=== PATIENT | female | born 1990 | race Caucasian/White ===

== ENCOUNTER → 2016-09-25 | Outpatient (CLI) | payer OTHER ==
--- NOTE | 2016-09-25 15:48 | US ---
EXAMINATION TYPE: US thyroid st tissue head/neck DATE OF EXAM: 09/25/2016 3:37 PM COMPARISON: NONE CLINICAL HISTORY: E04.9 Goiter, thyroid enlargement. GLAND SIZE: Right Lobe: 3.9 x 0.7 x 1.6 cm cm Overall Parenchyma: homogenous Left Lobe: 3.5 x 0.8 x 1.6 cm Overall Parenchyma: homogeneous Isthmus Thickness: 0.2 cm NODULES RIGHT: # of nodules measured on right: 1 1. 0.4 X 0.3 x 0.3 cm hypoechoic cystic nodule at the lower pole with well-defined margins; . This nodule is wider than tall and shows no intranodular vascularity. Prior size: no prior LEFT: # of nodules measured on left: 0 ISTHMUS: # of nodules measured in the isthmus: 0 Bilateral neck scanned, no evidence of lymphadenopathy. IMPRESSION: Subcentimeter cystic nodule right thyroid lobe.
== END | disposition home or self-care (01) ==
LOC: RADUSWWP 15:24
PROVIDERS: ATTEND Family Medicine
DX: E04.1 Nontoxic single thyroid nodule (principal)
CPT/HCPCS: 76536

== ENCOUNTER 2018-04-17 19:29 | Emergency (ER) | payer OTHER ==
[2018-04-17 19:43] VITALS: RESP 16
[2018-04-17] MEDS ORDERED: SODIUM CHLORIDE 0.9% 500 ML 500 ML IV STA (20:02)
[2018-04-17] MEDS ORDERED: ONDANSETRON 4 MG/2 ML VIAL IVP STA ×2 (20:02→21:32)
--- NOTE | 2018-04-17 20:15 | ED ---
Chest Pain HPI - General Chief Complaint: Chest Pain Stated Complaint: CP Time Seen by Provider: 04/17/18 19:45 Source: EMS Mode of arrival: EMS Limitations: no limitations - History of Present Illness Initial Comments: 27-year-old female patient presents to the emergency department today for evaluation of intermittent chest pain. Patient states the first episode was on Thursday while she was running on the treadmill. States that she was running for approximately 8 minutes when she started to have substernal chest pain and pressure. States that she was short of breath with this and did have racing heart. States that she did become nauseated. Patient states that she has had 2 further episodes of similar symptoms but without exertion with the last being today. Patient denies any abdominal pain, vomiting, constipation, or diarrhea. Denies any history of similar symptoms. Patient states that she does take oral contraceptives. She denies any recent travel, calf pain, or redness. She denies any fevers or chills this. States that this week she did develop nasal congestion and drainage and does have occasional cough but states that she was not ill with these symptoms with the first episode of chest pain. Patient denies any recent rash, back pain, numbness, tingling, dizziness, weakness, hematuria, dysuria, urinary urgency, urinary frequency, headache, visual changes , or any other complaints. - Related Data Allergies Allergy/AdvReac Type Severity Reaction Status Date / Time No Known Allergies Allergy Verified 04/17/18 19:50 Review of Systems ROS Statement: Those systems with pertinent positive or pertinent negative responses have been documented in the HPI. ROS Other: All systems not noted in ROS Statement are negative. EKG Findings - EKG Comments: EKG Findings:: EKG obtained at 1948 shows sinus rhythm with marked sinus arrhythmia. Ventricular rate is 62, MI interval 1:30, QRS duration 98, QT 400, QTC 406. No evidence of ST elevation or depression. Past Medical History History of Any Multi-Drug Resistant Organisms: None Reported Past Surgical History: Tubal Ligation Additional Past Surgical History / Comment(s): wisdom teeth removal Past Psychological History: Depression Smoking Status: Former smoker Past Alcohol Use History: None Reported Past Drug Use History: Marijuana General Exam Limitations: no limitations General appearance: alert, in no apparent distress, other (This is a well- developed, well-nourished adult female patient in no acute distress. Vital signs upon presentation are temperature 97.7F, pulse 79, respirations 16, blood pressure 149/99, pulse ox 98% on room air.) Eye exam: Present: normal appearance, PERRL, EOMI. Absent: scleral icterus, conjunctival injection, periorbital swelling ENT exam: Present: normal exam, normal oropharynx, mucous membranes moist Respiratory exam: Present: normal lung sounds bilaterally. Absent: respiratory distress, wheezes, rales, rhonchi, stridor Cardiovascular Exam: Present: regular rate, normal rhythm, normal heart sounds. Absent: systolic murmur, diastolic murmur, rubs, gallop, clicks GI/Abdominal exam: Present: soft, normal bowel sounds. Absent: distended, tenderness, guarding, rebound, rigid Neurological exam: Present: alert, oriented X3, CN II-XII intact Psychiatric exam: Present: normal affect, normal mood Skin exam: Present: warm, dry, intact, normal color. Absent: rash Course Vital Signs 04/17/18 04/17/18 04/17/18 19:39 19:41 20:00 Temperature 97.7 F Pulse Rate 79 70 Respiratory 16 15 Rate Blood Pressure 149/99 142/96 O2 Sat by Pulse 98 97 98 Oximetry 04/17/18 04/17/18 04/17/18 20:30 20:58 21:00 Temperature Pulse Rate 72 86 69 Respiratory 15 16 16 Rate Blood Pressure 136/99 127/86 127/86 O2 Sat by Pulse 100 99 97 Oximetry 04/17/18 04/17/18 04/17/18 21:30 22:00 22:47 Temperature 98.1 F Pulse Rate 93 79 75 Respiratory 16 16 16 Rate Blood Pressure 123/98 123/98 127/97 O2 Sat by Pulse 98 97 99 Oximetry Chest Pain [facility]:Two-view x-ray of the chest is obtained. This no focal airspace opacity, pleural effusion, or pneumothorax. The cardiac silhouette size is within normal limits. The osseous structures are intact. There are overlying cardiac leads. Impression by Dr. Moreland shows no acute cardiopulmonary process. MDM: 27-year-old female patient presented to the emergency department today with complaints of intermittent episodes of chest pain, pressure, and shortness of breath. Physical examination is unremarkable. Lungs are clear to auscultation with good air movement. EKG shows normal sinus rhythm with a sinus arrhythmia. Labs reviewed and are unremarkable. Chest x-ray shows no acute cardiopulmonary process. Did discuss findings and results with the patient. She is instructed follow-up with her primary care physician for recheck in 1-2 days. She is instructed to follow up with cardiology for further evaluation. She is instructed to avoid physical exertion until cleared by her physician. Return parameters were discussed in detail. She verbalizes understanding and agrees with this plan. Disposition Clinical Impression: Chest pain Disposition: HOME SELF-CARE Condition: Good Instructions: Chest Pain (ED), Low Fat Diet (ED) Additional Instructions: Follow-up with cardiology and her primary care physician for recheck as soon as possible. Return immediately for any new, worsening, or concerning symptoms. Is patient prescribed a controlled substance at d/c from ED?: No Referrals: Don Robles DO [Primary Care Provider] - 1-2 days Daniel Mcdermott MD [STAFF PHYSICIAN] - 1-2 days Time of Disposition: 22:40
[2018-04-17 20:45] LABS: Basophils % (A) 0 %; Eosinophils # (A) 0.3 k/uL (0-0.7); Eosinophils % (A) 2 %; HCT 40.1 % (34.0-46.0); HGB 13.5 gm/dL (11.4-16.0); Lymphocytes # (A) 2.8 k/uL (1.0-4.8); Lymphocytes % (A) 22 %; MCHC 33.6 g/dL (31.0-37.0); MCV 86.5 fL (80.0-100.0); Mean Platelet Volume 6.7; Monocytes # (A) 0.7 k/uL (0-1.0); Monocytes % (A) 5 %; Neutrophils # (A) 9.1 k/uL (1.3-7.7); Neutrophils % (A) 70 %; Platelet Count 362 k/uL (150-450); RBC 4.64 m/uL (3.80-5.40); RDW 12.8 % (11.5-15.5)
[2018-04-17 20:59] LABS: ALT 28 U/L (9-52); AST 30 U/L (14-36); Albumin 4.4 g/dL (3.5-5.0); Alkaline Phosphatase 145 U/L (38-126); Anion Gap 12 mmol/L; Blood Urea Nitrogen 15 mg/dL (7-17); Calcium 11.1 mg/dL (8.4-10.2); Carbon Dioxide 27 mmol/L (22-30); Chloride 100 mmol/L (98-107); Glucose 89 mg/dL (74-99); Magnesium 1.6 mg/dL (1.6-2.3); Potassium 4.2 mmol/L (3.5-5.1); Sodium 139 mmol/L (137-145); Total Bilirubin 0.4 mg/dL (0.2-1.3); Total Protein 8.1 g/dL (6.3-8.2)
--- NOTE | 2018-04-17 21:03 | XR ---
EXAMINATION TYPE: XR chest 2V DATE OF EXAM: 04/17/2018 COMPARISON: NONE HISTORY: Chest pain TECHNIQUE: Frontal and lateral views of the chest are obtained. FINDINGS: There is no focal air space opacity, pleural effusion, or pneumothorax seen. The cardiac silhouette size is within normal limits. The osseous structures are intact. There are overlying car diac leads. IMPRESSION: No acute cardiopulmonary process.
[2018-04-17 21:07] LABS: D-Dimer 0.28 mg/L FEU (<0.60); Partial Thromboplastin Time 27.6 sec (22.0-30.0); Prothrombin Time 9.6 sec (9.0-12.0)
[2018-04-17 21:24] LABS: Creatine Kinase 113 U/L (30-135)
[2018-04-17 21:36] LABS: Creatine Kinase MB 0.3 ng/mL (0.0-2.4); Troponin I <0.012 ng/mL (0.000-0.034)
[2018-04-17 22:12] LABS: Amorphous Sediment,Urine Occasional /hpf; Appearance,Urine Clear (Clear); Bilirubin,Urine Negative (Negative); Blood,Urine Small (Negative); Color,Urine Yellow; Glucose,Urine (UA) Negative (Negative); Hyaline Casts,Urine 1 /lpf (0-2); Ketones,Urine 1+ (Negative); Leukocyte Esterase,Urine Negative (Negative); Mucus,Urine Occasional /hpf; Nitrite,Urine Negative (Negative); PH, Urine 5.5 (5.0-8.0); Protein,Urine Negative (Negative); RBC,Urine 3 /hpf (0-5); Specific Gravity,Urine 1.021 (1.001-1.035); Squamous Epithelial Cell,Urine 10 /hpf (0-4); Urobilinogen,Urine <2.0 mg/dL (<2.0); WBC,Urine 5 /hpf (0-5)
[2018-04-17 22:48] VITALS: BP 127/97; PULSE 75; TEMP 98.1
== END 2018-04-17 22:48 | disposition home or self-care (01) ==
LOC: EC 19:29
DX: R07.2 Precordial pain (principal); R11.0 Nausea; R06.02 Shortness of breath; Z87.891 Personal history of nicotine dependence
CPT/HCPCS: 36415; 93005; 85379; 80053; 82550; 82553; 83735; 84484; 85025; 85610; 85730; 81001; 81025; 71046; 99285; 96374; 96376; J2405

== ENCOUNTER → 2018-04-22 | Outpatient (CLI) | payer OTHER ==
--- NOTE | 2018-04-22 13:42 | US ---
EXAMINATION TYPE: US abdomen complete DATE OF EXAM: 04/22/2018 COMPARISON: NONE CLINICAL HISTORY: K81.0 Acute cholecystitis. Right upper quadrant pain. EXAM MEASUREMENTS: Liver Length: 15.6 cm Gallbladder Wall: 0.3 cm CBD: 0.4 cm Spleen: 11.3 cm Right Kidney: 10.8 x 4.4 x 5.3 cm Left Kidney: 11.0 x 5.8 x 5.6 cm Pancreas: Obscured by bowel gas Liver: wnl Gallbladder: No stones seen Evidence for sonographic Randall's sign: No CBD: wnl Spleen: wnl Right Kidney: echogenic pyramids seen in cortex Left Kidney: echogenic pyramids seen in cortex Upper IVC: Obscured by overlying bowel gas Abd Aorta: wnl The visualized liver is homogenous. The intrahepatic portion of the IVC and visualized abdominal aor ta are within normal limits. There is no evidence of cholelithiasis. Common bile duct is unremarkab le. The pancreas is suboptimally seen on images saved secondary to shadowing from overlying bowel ga s. The spleen is unremarkable. Kidneys are symmetric and free of hydronephrosis. No renal lesions are seen. IMPRESSION: No suspicious acute finding is seen to account for patient's symptoms.
== END | disposition home or self-care (01) ==
LOC: RADUSWWP 10:05
PROVIDERS: ATTEND Family Medicine
DX: K81.0 Acute cholecystitis (principal)
CPT/HCPCS: 76700

== ENCOUNTER 2019-07-29 08:12 | Day surgery (SDC) | payer OTHER ==
[2019-07-27 14:59] VITALS: BMI 30.1
[~2019-07-29 08:12] MED LIST: LACTATED RINGERS 1,000 ML IV SCH; LIDOCAINE 1% 20 ML VIAL (10MG/ML) FOR IV START INTRADERMA PRN
[2019-07-29 08:35] VITALS: TEMP 98.3
[2019-07-29] MEDS ORDERED: PROPOFOL 10 MG/ML 20 ML VIAL IV ONE (09:21)
[2019-07-29] MEDS ORDERED: LIDOCAINE 1% INJ 10MG/ML (20 ML MDV) ONE (09:21)
--- NOTE | 2019-07-29 09:23 | P.GSHP ---
History of Present Illness H&P Date: 07/29/19 Chief Complaint: GERD This a 19-year-old female who presents today for EGD. She's had issues with GERD. Past Medical History Past Medical History: GERD/Reflux Additional Past Medical History / Comment(s): vomiting mucus brownish color during the night History of Any Multi-Drug Resistant Organisms: None Reported Past Surgical History: Tubal Ligation Additional Past Surgical History / Comment(s): wisdom teeth removal Past Anesthesia/Blood Transfusion Reactions: No Reported Reaction Smoking Status: Former smoker - Past Family History Mother Family Medical History: No Reported History Medications and Allergies Home Medications Medication Instructions Recorded Confirmed Type Norethindrone-E.estradiol-Iron 1 tab PO HS 07/27/19 07/29/19 History [Junel Fe 1.5 mg-30 Mcg Tablet] Omeprazole 20 mg PO HS 07/27/19 07/29/19 History Allergies Allergy/AdvReac Type Severity Reaction Status Date / Time No Known Allergies Allergy Verified 07/29/19 08:33 Surgical - Exam Vital Signs Temp Pulse Resp BP Pulse Ox 98.3 F 92 16 139/93 98 07/29/19 08:28 07/29/19 08:28 07/29/19 08:28 07/29/19 08:28 07/29/19 08:28 - General well developed, well nourished, no distress - Eyes PERRL - ENT normal pinna - Neck no masses - Respiratory normal expansion - Cardiovascular Rhythm: regular - Abdomen Abdomen: soft, non tender Assessment and Plan Assessment: GERD. We'll perform EGD.
--- NOTE | 2019-07-29 09:30 | P.OP ---
Date of Procedure: 07/29/19 Preoperative Diagnosis: GERD Postoperative Diagnosis: Antral gastritis Hiatal hernia Esophagitis Procedure(s) Performed: EGD Anesthesia: MAC Surgeon: Morales Cueto Pathology: other (Antral, esophagus) Condition: stable Disposition: PACU Description of Procedure: Patient's placed on the endoscopy table in the lateral position. She received IV sedation. The gastro-placed oropharynx passed in the esophagus into the stomach. Scope was then placed through the pylorus. The first and second portion of the duodenum appeared normal. Scope was then brought back the antrum and this appeared mildly inflamed. A biopsies performed. Was then retroflexed and the remainder of the stomach appeared normal. The patient had a moderate size hiatal hernia. The GE junction was at 39 cm. The distal esophagus appeared inflamed. A biopsies performed. The proximal esophagus appeared normal. Was then withdrawn from the patient.
[2019-07-29 09:33] VITALS: RESP 17
[2019-07-29 09:49] VITALS: BP 133/79; PULSE 70
== END 2019-07-29 10:06 | disposition home or self-care (01) ==
LOC: ORWHC2ENDO 08:12
PROVIDERS: ATTEND Surgery
DX: K29.50 Unspecified chronic gastritis without bleeding (principal); K21.0 Gastro-esophageal reflux disease with esophagitis; K44.9 Diaphragmatic hernia without obstruction or gangrene; F32.9 Major depressive disorder, single episode, unspecified; E66.9 Obesity, unspecified; Z87.891 Personal history of nicotine dependence; Z79.899 Other long term (current) drug therapy; Z68.30 Body mass index [BMI] 30.0-30.9, adult; Z98.51 Tubal ligation status; Z98.818 Other dental procedure status
CPT/HCPCS: 81025; 88305; 43239; J2001; J2704

== ENCOUNTER 2019-08-26 07:40 | Inpatient (IN) | payer OTHER ==
[~2019-08-26 07:40] MED LIST changes: +DEXAMETHASONE SOD PHOSPHATE 10 MG/ML 1 ML VIAL IV ONE; +HEPARIN SODIUM,PORCINE 5,000 UNIT/ML 1 ML VIAL SQ ONE; +HYDROmorphone 0.5 MG/0.5 ML SYRINGE IVP PRN; -LACTATED RINGERS 1,000 ML IV SCH; +LIDOCAINE 1% (10MG/ML) FOR IV START INTRADERMA PRN; -LIDOCAINE 1% 20 ML VIAL (10MG/ML) FOR IV START INTRADERMA PRN; +ONDANSETRON 4 MG/2 ML VIAL IVP ONE; +SCOPOLAMINE 1.5MG/72HR PATCH TRANSDERM ONE
[2019-08-26] MEDS: LACTATED RINGERS 1,000 ML IV SCH ×2 (09:38→23:50)
--- NOTE | 2019-08-26 10:32 | P.GSHP ---
History of Present Illness H&P Date: 08/26/19 Chief Complaint: GERD Is a 28-year-old female referred from Dr. Robles. The patient has had long- standing problems with reflux esophagitis. The patient underwent recent EGD is found have evidence of esophagitis. Patient has been well informed on the proce dure of laparoscopic Lay fundoplication. The patient is aware the risk of the conversion to the open procedure, risk of injury to the stomach, liver and spleen. The patient is also a risk of recurrent GERD and dysphagia symptoms. The patient understands there is a postoperative diet of full liquids for 2 weeks after surgery. Past Medical History Past Medical History: GERD/Reflux Additional Past Medical History / Comment(s): Vomiting mucus brownish color during the night History of Any Multi-Drug Resistant Organisms: None Reported Past Surgical History: Tubal Ligation Additional Past Surgical History / Comment(s): wisdom teeth removal. BILATERAL MYRINGOTOMY TUBES. Past Anesthesia/Blood Transfusion Reactions: No Reported Reaction Past Psychological History: Depression Additional Psychological History / Comment(s): TAKES NO MEDS Smoking Status: Former smoker Past Alcohol Use History: Occasional Additional Past Alcohol Use History / Comment(s): quit smoking Jul 2017,smoked approx 6 yrs on and off Past Drug Use History: Marijuana Additional Drug Use History / Comment(s): uses marijuana socially-used last 07-24-19 - Past Family History Mother Family Medical History: No Reported History Medications and Allergies Home Medications Medication Instructions Recorded Confirmed Type Norethindrone-E.estradiol-Iron 1 tab PO HS 07/27/19 08/24/19 History [Junel Fe 1.5 mg-30 Mcg Tablet] Omeprazole 20 mg PO HS 07/27/19 08/24/19 History Allergies Allergy/AdvReac Type Severity Reaction Status Date / Time No Known Allergies Allergy Verified 08/26/19 09:10 Surgical - Exam Vital Signs Temp Pulse Resp BP Pulse Ox 98.2 F 89 16 140/90 99 08/26/19 09:12 08/26/19 09:12 08/26/19 09:12 08/26/19 09:12 08/26/19 09:12 - General well developed, well nourished, no distress - Eyes PERRL - ENT normal pinna - Neck no masses - Respiratory normal expansion - Cardiovascular Rhythm: regular - Abdomen Abdomen: soft, non tender Assessment and Plan Assessment: GERD. We'll perform laparoscopic Lay fundoplication.
[2019-08-26] MEDS ORDERED: MIDAZOLAM 2 MG/2 ML VIAL ONE (10:52)
[2019-08-26] MEDS ORDERED: NEOSTIGMINE 1 MG/ML 10 ML VIAL ONE (10:52)
[2019-08-26] MEDS ORDERED: KETOROLAC 30 MG/ML 1 ML VIAL ONE (10:52)
[2019-08-26] MEDS ORDERED: ROCURONIUM BROMIDE 10 MG/ML 5 ML VIAL IV ONE (10:52)
[2019-08-26] MEDS ORDERED: fentaNYL (PF) 50 MCG/ML 2 ML AMP ONE (10:52)
[2019-08-26] MEDS ORDERED: SUCCINYLCHOLINE CHLORIDE 100 MG/5 ML SYR IV ONE (10:52)
[2019-08-26] MEDS ORDERED: GLYCOPYRROLATE 0.2 MG/ML 2 ML VIAL ONE (10:52)
[2019-08-26] MEDS ORDERED: PROPOFOL 10 MG/ML 20 ML VIAL IV ONE (10:52)
[2019-08-26] MEDS ORDERED: LIDOCAINE 1% INJ 10MG/ML (20 ML MDV) ONE (10:52)
[2019-08-26] MEDS ORDERED: BUPIVACAINE (PF) 0.25% 30 ML VIAL SQ ONE ×2 (11:21→11:24)
[2019-08-26] MEDS ORDERED: LACTATED RINGERS 1,000 ML IV ONE (11:24)
--- NOTE | 2019-08-26 12:04 | P.OP ---
Date of Procedure: 08/26/19 Preoperative Diagnosis: GERD Postoperative Diagnosis: GERD Procedure(s) Performed: Laparoscopic Lay fundal plication Anesthesia: BRIANA Surgeon: Morales Cueto Estimated Blood Loss (ml): 5 Pathology: none sent Condition: stable Disposition: PACU Description of Procedure: HThe patient was placed on the operating table in the supine position. The patient received general anesthesia. And was placed in dorsal lithotomy position. The patient was prepped and draped in the usual sterile fashion. The skin incision sites were anesthetized with 1% local Xylocaine. The skin was incised in the left periumbilical area and then using a blade less 5 mm trocar under direct visualization panel cavity was entered. After adequate insufflation the laparoscope was then placed into the peritoneal cavity. Next a 5 mm trochars placed in the right epigastric position. Another 5 millimeter trocar the right lateral position. Another 5 millimeter trocar in the left lateral position a 5 mm trocar is placed in the left epigastric position. And then the initial 5 mm trocar was exchanged for a 10 mm trocar. The left lateral lobe liver was retracted. The hernia was seen. The crural defect was then dissected using the Harmonic scissors device. A 360 crural dissection was performed the esophagus stomach was reduced back into the peritoneal Cavity. The crural defect was then closed using 2-0 Ethibond suture. Next the fundus of the stomach was mobilized using the Carlyle scissors device. and then a 58- Samoan bougie dilator was placed oropharynx passed into the esophagus and stomach the fundal plication wrap was then performed by grasping the fundus post eriorly and bringing it around the esophagus and stomach fundoplication was then performed using 2-0 Ethibond suture. Care was taken that the fundal location rested over top of the intra-abdominal esophagus. There was no injury seen to the stomach or esophagus. The dilator was then withdrawn. The abdomen was irrigated there is no bleeding seen. The trochars were then withdrawn and then skin incision sites were closed using 3-0 Monocryl suture Steri-Strips are applied. Patient thought procedure well and sent to recovery room in stable condition.
[2019-08-26] MEDS ORDERED: ONDANSETRON 4 MG/2 ML VIAL IVP PRN (12:06)
[2019-08-26 14:35] VITALS: BMI 31.6
--- NOTE | 2019-08-26 15:53 | FL ---
EXAMINATION TYPE: FL esophagus cervic/pharynx DATE OF EXAM: 08/26/2019 HISTORY: Post Lay 100 complication COMPARISON: NONE TECHNIQUE: A single contrast esophagram is performed utilizing air and barium. FINDINGS: The esophagus shows abnormal longitudinal filling defects distally which is proximal to the level of the fundoplication. There is delay of contrast material across the gastroesophageal junction. Pneumop eritoneum is identified. Patient unable to tolerate the exam, experienced nausea and vomiting. Retroc ardiac density likely left lower lobe atelectatic change. IMPRESSION: Abnormal luminal appearance of the distal esophagus proximal to the surgical bed as desc ribed with high-grade partial obstruction. Pneumoperitoneum is likely postoperative, consider endosco py. Report relayed to the referring clinician at the time of interpretation.
[2019-08-26] MEDS: DEXAMETHASONE SOD PHOSPHATE 4 MG/ML 1 ML VIAL IV SCH ×2 (17:28→23:49)
[2019-08-26] MEDS: HYDROmorphone 1 MG/ML 1 ML SYRINGE IVP PRN (17:28)
[2019-08-26] MEDS: D5-0.45% NACL WITH KCL 20MEQ/L 1,000 ML IV SCH ×2 (17:34→20:15)
[2019-08-26] MEDS: FAMOTIDINE 20 MG/2 ML VIAL IV SCH (20:15)
[2019-08-27] MEDS: HYDROmorphone 1 MG/ML 1 ML SYRINGE IVP PRN ×2 (00:07→10:20)
[2019-08-27] MEDS: D5-0.45% NACL WITH KCL 20MEQ/L 1,000 ML IV SCH ×2 (04:35→12:16)
[2019-08-27] MEDS: DEXAMETHASONE SOD PHOSPHATE 4 MG/ML 1 ML VIAL IV SCH ×2 (05:41→12:14)
[2019-08-27] MEDS ORDERED: ENOXAPARIN 40 MG/0.4 ML SYRINGE SQ SCH (09:00)
[2019-08-27] MEDS: FAMOTIDINE 20 MG/2 ML VIAL IV SCH (09:47)
[2019-08-27 12:04] VITALS: BP 135/86; RESP 16; TEMP 98
--- NOTE | 2019-08-27 12:58 | FL ---
EXAMINATION TYPE: FL UGI w esophagus DATE OF EXAM: 08/27/2019 CLINICAL HISTORY: Status post Lay fundoplication TECHNIQUE: Limited esophagram is performed utilizing 25 mL of oral Isovue-370. A total of 19 seconds of fluoroscopic time was utilized during procedure. 10 fluoroscopic images were saved during the exa mination. FINDINGS: The patient swallowed contrast without difficulty or delay. Esophageal peristalsis and mo tility are within normal limits. There is good flow of contrast along the diaphragmatic hiatus into t he stomach, there is no evidence of contrast extravasation to suggest leak. No persistent hiatal cinthya ia is seen. Patient remains asymptomatic. IMPRESSION: No evidence of leak or significant obstruction status post Gustavo fundoplication surgery earlier today.
[2019-08-27 14:03] VITALS: PULSE 76
--- NOTE | 2019-08-27 14:36 | PN ---
PROGRESS NOTE CHIEF COMPLAINT: Reflux. SUBJECTIVE: Patient doing well today. Minimal discomfort overnight. Yesterday's upper GI showed narrowing at the fundoplication site. Today she underwent repeat upper GI showing no evidence of obstruction. The patient had no vomiting. OBJECTIVE: ABDOMEN: Soft, nondistended. Minimal tenderness. ASSESSMENT: Gonxqo[age]vzos[age]cudi-old female with reflux post Lay fundoplication. PLAN: Begin Lay clear liquid diet at this time. If tolerates, consider discharge later today. MMODL / IJN: [id number] /
--- NOTE | 2019-08-27 16:05 | P.CONS ---
History of Present Illness - Reason for Consult gastroesophageal reflux disease - History of Present Illness patient is a pleasant 28-year-old female admitted for elective assessment of infection successfully underwent surgery patient failed swallow evaluation yesterday patienthad an upper GIbarium swallows did not show any leak and patient is clinically doing well able to tolerate clear liquid diet well at this time. Patient denied any fever chills patient is inevitable catheter patient denied any dysuria nausea vomiting. Review of Systems REVIEW OF SYSTEMS: CONSTITUTIONAL: No fever, no malaise, no fatigue. HEENT: No recent visual problems or hearing problems. Denied any sore throat. CARDIOVASCULAR: No chest pain, orthopnea, PND, no palpitations, no syncope. PULMONARY: No shortness of breath, no cough, no hemoptysis. GASTROINTESTINAL: No diarrhea, no nausea, no vomiting, no abdominal pain. NEUROLOGICAL: No headaches, no weakness, no numbness. HEMATOLOGICAL: Denies any bleeding or petechiae. GENITOURINARY: Denies any burning micturition, frequency, or urgency. MUSCULOSKELETAL/RHEUMATOLOGICAL: Denies any joint pain, swelling, or any muscle pain. ENDOCRINE: Denies any polyuria or polydipsia. The rest of the 14-point review of systems is negative. Past Medical History Past Medical History: GERD/Reflux Additional Past Medical History / Comment(s): Vomiting mucus brownish color du ring the night History of Any Multi-Drug Resistant Organisms: None Reported Past Surgical History: Tubal Ligation Additional Past Surgical History / Comment(s): wisdom teeth removal. BILATERAL MYRINGOTOMY TUBES. Past Anesthesia/Blood Transfusion Reactions: No Reported Reaction Past Psychological History: Depression Additional Psychological History / Comment(s): TAKES NO MEDS Smoking Status: Former smoker Past Alcohol Use History: Occasional Additional Past Alcohol Use History / Comment(s): quit smoking Jul 2017,smoked approx 6 yrs on and off Past Drug Use History: Marijuana Additional Drug Use History / Comment(s): uses marijuana socially-used last 2-- - Past Family History Mother Family Medical History: No Reported History Medications and Allergies Home Medications Medication Instructions Recorded Confirmed Type Norethindrone-E.estradiol-Iron 1 tab PO HS 07/27/19 08/24/19 History [Junel Fe 1.5 mg-30 Mcg Tablet] Omeprazole 20 mg PO HS 07/27/19 08/24/19 History Docusate [Colace] 100 mg PO BID #20 capsule 08/26/19 Rx HYDROcodone/APAP 5-325MG [[place] 1 tab PO Q6HR PRN #10 tab 08/26/19 Rx 5-325] Hydrocodone/Acetaminophen [[place] 1 tab PO Q6HR PRN #10 tab 08/26/19 Rx 5-325] Allergies Allergy/AdvReac Type Severity Reaction Status Date / Time No Known Allergies Allergy Verified 08/26/19 09:10 Physical Exam Vitals: Vital Signs Temp Pulse Pulse Pulse Resp BP Pulse Ox 08/27/19 11:42 98.0 F 82 16 135/86 97 08/27/19 09:00 76 08/27/19 08:22 97.5 F L 56 L 18 137/87 94 L 08/27/19 00:46 98.8 F 83 18 126/72 98 08/26/19 18:49 99.0 F 87 20 143/80 94 L 08/26/19 17:28 90 20 148/90 94 L 08/26/19 16:28 80 20 129/76 95 Intake and Output 08/27/19 08/27/19 08/27/19 06:59 14:59 22:59 Intake Total 1350 160 120 Output Total 2000 Balance 1350 -1840 120 Intake: Intake, IV Titration 1250 Amount D5-0.45% NaCl with KCl 1250 20Meq/l 1,000 ml @ 125 mls/hr IV .Q8H [facility] Rx#: [id number] Oral 100 160 120 Output: Urine 2000 Other: Voiding Method Toilet # Voids 2 2 PHYSICAL EXAMINATION: GENERAL: The patient is alert and oriented x3, not in any acute distress. Well developed, well nourished. HEENT: Pupils are round and equally reacting to light. EOMI. No scleral icterus. No conjunctival pallor. Normocephalic, atraumatic. No pharyngeal erythema. No thyromegaly. CARDIOVASCULAR: S1 and S2 present. No murmurs, rubs, or gallops. PULMONARY: Chest is clear to auscultation, no wheezing or crackles. ABDOMEN: Soft, nontender, nondistended, normoactive bowel sounds. No palpable organomegaly. MUSCULOSKELETAL: No joint swelling or deformity. EXTREMITIES: No cyanosis, clubbing, or pedal edema. NEUROLOGICAL: Gross neurological examination did not reveal any focal deficits. SKIN: No rashes. Assessment and Plan Plan: -gastroesophageal reflux disease patient is status post recent fundoplication and patient on Pepcid which is appropriate patient is tolerating clear liquid diet well developed. patient is stable from medical perspective to be discharged -depression
== END 2019-08-27 15:35 | disposition home or self-care (01) | DRG 328 ==
LOC: 2ORMAIN 08:56 → 6PED 12:09
PROVIDERS: ADMIT Surgery; ATTEND Surgery
PROC: 0DV44ZZ Restriction of Esophagogastric Junction, Percutaneous Endoscopic Approach (ICD-10-PCS; principal; 2019-08-26 10:45)
DX: K21.9 Gastro-esophageal reflux disease without esophagitis (principal); F32.9 Major depressive disorder, single episode, unspecified; Z87.891 Personal history of nicotine dependence
CPT/HCPCS: 74210; 74240; 81025

== ENCOUNTER → 2019-12-29 | Outpatient (CLI) | payer OTHER ==
--- NOTE | 2019-12-29 12:11 | NM ---
EXAMINATION TYPE: NM hepatobiliary w CCK DATE OF EXAM: 12/29/2019 COMPARISON: NONE HISTORY: 29-year-old female K81.1, chronic cholecystitis, epigastric pain. TECHNIQUE: After the intravenous administration of 4.94 mCi Tc 99m Mebrofenin hepatobiliary scintigra phy is performed. Immediate images post injection. FINDINGS: There is satisfactory initial accumulation of tracer by the liver. The gallbladder is visualized at 8 minutes. The small bowel activity is noted at 18 minutes. At one hour CCK was administered, patient was injected with 1.5 mcg of Kinevac, and gallbladder ejection fraction is calculated at 12 %, signi ficantly decreased. IMPRESSION: 1. No scintigraphic evidence for acute cholecystitis. 2. Gallbladder ejection fraction is markedly diminished to 12%. Findings can be seen with chronic cho lecystitis or biliary dyskinesia.
== END | disposition home or self-care (01) ==
LOC: RADNMMAIN 06:53
PROVIDERS: ATTEND Surgery
DX: R93.2 Abnormal findings on diagnostic imaging of liver and biliary tract (principal)
CPT/HCPCS: 78227; A9537; J2805

== ENCOUNTER 2020-01-09 06:34 | Day surgery (SDC) | payer OTHER ==
[2020-01-05 13:36] VITALS: BMI 29.7
[~2020-01-09 06:34] MED LIST changes: +ACETAMINOPHEN TAB 500 MG TAB PO ONE; -HYDROmorphone 0.5 MG/0.5 ML SYRINGE IVP PRN
[2020-01-09] MEDS ORDERED: ACETAMINOPHEN TAB 500 MG TAB ONE (07:10)
[2020-01-09] MEDS ORDERED: HEPARIN SODIUM,PORCINE 5,000 UNIT/ML 1 ML VIAL ONE (07:11)
[2020-01-09] MEDS ORDERED: ONDANSETRON 4 MG/2 ML VIAL ONE (07:11)
[2020-01-09] MEDS: LACTATED RINGERS 1,000 ML IV SCH ×2 (07:25→07:45)
[2020-01-09] MEDS ORDERED: GLYCOPYRROLATE 0.2 MG/ML 2 ML VIAL ONE (07:40)
[2020-01-09] MEDS ORDERED: MIDAZOLAM 2 MG/2 ML VIAL ONE (07:40)
[2020-01-09] MEDS ORDERED: SUCCINYLCHOLINE CHLORIDE 100 MG/5 ML SYR IV ONE (07:40)
[2020-01-09] MEDS ORDERED: LIDOCAINE 1% INJ 10MG/ML (20 ML MDV) ONE (07:40)
[2020-01-09] MEDS ORDERED: ROCURONIUM BROMIDE 10 MG/ML 5 ML VIAL IV ONE (07:40)
[2020-01-09] MEDS ORDERED: NEOSTIGMINE 1 MG/ML 10 ML VIAL ONE (07:40)
[2020-01-09] MEDS ORDERED: PROPOFOL 10 MG/ML 20 ML VIAL IV ONE (07:40)
[2020-01-09] MEDS ORDERED: fentaNYL (PF) 50 MCG/ML 2 ML AMP ONE (07:40)
[2020-01-09] MEDS ORDERED: KETOROLAC 30 MG/ML 1 ML VIAL ONE (07:40)
[2020-01-09] MEDS ORDERED: BUPIVACAIN-EPI 0.25%-1:200,000 30 ML VIAL SQ ONE (08:05)
--- NOTE | 2020-01-09 08:28 | P.OP ---
Date of Procedure: 01/09/20 Preoperative Diagnosis: Cholecystitis Postoperative Diagnosis: Cholecystitis Procedure(s) Performed: Laparoscopic cholecystectomy Anesthesia: BRIANA Surgeon: Morales Cueto Estimated Blood Loss (ml): 5 Pathology: other (Gallbladder) Condition: stable Disposition: PACU Description of Procedure: The patient was placed on the operating table. The patient received a general endotracheal tube anesthesia. The patients abdomen was prepped and draped in the usual sterile fashion. Through an infraumbilical stab incision, the fascia of the anterior abdominal wall was grasped with a pair of Kochers and then the Veress needle was placed in the peritoneal cavity. Position of the Veress needle was confirmed with positive drop test. The abdomen was then insufflated. After adequate insufflation, the 10 mm trocar was placed in the peritoneal cavity. Following this the laparoscope was placed in the peritoneal cavity. The patient was placed in the head-up, right side up position and then a 5 mm trocar was placed in the right lateral and right subcostal position under direct visualization. A 8 mm trocar was placed in the epigastric position. The gallbladder was grasped in the fundus and infundibulum. Traction on the gallbladder was placed in the lateral and the cephalad positions. The triangle of Calot was visualized.. The cystic duct was bluntly dissected until the union of the cystic duct and common bile duct was seen. A critical view of safety was achieved. The cystic duct was then divided and sealed with the Harmonic scissors. A PDS Endoloop was then placed throughout the cystic duct stump. The cystic artery divided and sealed with the Harmonic scissors. The gallbladder was then removed from the liver bed using Harmonic scissors. The gallbladder was then extracted through the epigastric port site. Operative field was checked for any bleeding spots and Harmonic scissors was used to coagulate the liver bed. The abdomen was irrigated. The trocars were removed. The skin was closed using interrupted 3-0 Vicryl suture. Dermabond dressing were applied. The patient tolerated the procedure well.
--- NOTE | 2020-01-09 08:32 | P.GSHP ---
History of Present Illness H&P Date: 01/09/20 Chief Complaint: Chronic cholecystitis This a 29-year-old female presents today for laparoscopic close it. Patient quadrant pain. A recent HIDA scan shows a 12% ejection fraction consistent with chronic cholecystitis. Past Medical History Past Medical History: GERD/Reflux Additional Past Medical History / Comment(s): current abdominal pain, History of Any Multi-Drug Resistant Organisms: None Reported Past Surgical History: Tubal Ligation Additional Past Surgical History / Comment(s): alma fundlaplication, wisdom teeth removal. BILATERAL MYRINGOTOMY TUBES. Past Anesthesia/Blood Transfusion Reactions: No Reported Reaction Smoking Status: Former smoker - Past Family History Mother Family Medical History: No Reported History Medications and Allergies Home Medications Medication Instructions Recorded Confirmed Type Norethindrone-E.estradiol-Iron 1 tab PO HS 07/27/19 01/09/20 History [Junel Fe 1.5 mg-30 Mcg Tablet] Allergies Allergy/AdvReac Type Severity Reaction Status Date / Time No Known Allergies Allergy Verified 01/09/20 06:51 Surgical - Exam Vital Signs Temp Pulse Resp BP Pulse Ox 97.9 F 89 18 128/84 97 01/09/20 07:03 01/09/20 07:03 01/09/20 07:03 01/09/20 07:03 01/09/20 07:03 - General well developed, well nourished, no distress - Eyes PERRL - ENT normal pinna - Neck no masses - Respiratory normal expansion - Cardiovascular Rhythm: regular - Abdomen Abdomen: soft, non tender Assessment and Plan Assessment: Chronic cholecystitis. We'll perform laparoscopic cholecystectomy
[2020-01-09 08:38] VITALS: TEMP 98
[2020-01-09] MEDS: HYDROmorphone 0.5 MG/0.5 ML SYRINGE IVP PRN ×2 (08:46→08:51)
[2020-01-09] MEDS ORDERED: LACTATED RINGERS 1,000 ML IV ONE (09:09)
[2020-01-09 09:45] VITALS: RESP 20
[2020-01-09] MEDS ORDERED: HYDROcodone/APAP 5-325MG 1 EACH TAB ONE (10:00)
[2020-01-09] MEDS ORDERED: HYDROcodone/APAP 5-325MG 1 EACH TAB PO ONE (10:01)
[2020-01-09 10:42] VITALS: BP 132/80; PULSE 70
== END 2020-01-09 10:35 | disposition home or self-care (01) ==
LOC: OR 06:34
PROVIDERS: ATTEND Surgery
DX: K81.1 Chronic cholecystitis (principal); K21.9 Gastro-esophageal reflux disease without esophagitis; Z98.51 Tubal ligation status; Z87.891 Personal history of nicotine dependence; Z79.818 Long term (current) use of other agents affecting estrogen receptors and estrogen levels
CPT/HCPCS: 81025; 88304; 47562; J2250; J1644; J1100; J2710; J0690; J2405; J2001; J3010; J1885; J0330; J2704; J1170

== ENCOUNTER → 2020-03-07 | Outpatient (CLI) | payer OTHER ==
[2020-03-07 08:53] LABS: HCT 39.1 % (34.0-46.0); HGB 12.8 gm/dL (11.4-16.0); MCH 28.8 pg (25.0-35.0); MCHC 32.8 g/dL (31.0-37.0); MCV 87.9 fL (80.0-100.0); Mean Platelet Volume 6.7; Platelet Count 373 k/uL (150-450); RBC 4.45 m/uL (3.80-5.40); RDW 12.7 % (11.5-15.5); WBC 9.1 k/uL (3.8-10.6)
[2020-03-07 18:19] LABS: African American GFR (CKD) 114.7 (60.0-200.0); Albumin 4.4 g/dL (3.80-4.90); Albumin/Globulin Ratio 1.83 (1.60-3.17); BUN/Creat Ratio 17.5 Ratio (12.00-20.00); Calcium 9.4 mg/dL (8.7-10.3); Chol/HDL Ratio 4.02; Globulin 2.4 g/dL (1.6-3.3); LDL Cholesterol,Calculated 112.2 mg/dL (0.0-131.0); Non-African American GFR(CKD) 98.9 (60.0-200.0); Potassium 4.5 mmol/L (3.5-5.5); Total Bilirubin 0.3 mg/dL (0.3-1.2); Total Protein 6.8 g/dL (6.2-8.2); VLDL Calculation 38.8 mg/dL (5.00-40.00)
[2020-03-07 18:27] LABS: T4, Free (Free Thyroxine) 0.9 ng/dL (0.80-1.80)
== END | disposition home or self-care (01) ==
LOC: LABWHC1 08:07
PROVIDERS: ATTEND Family Medicine
DX: E04.1 Nontoxic single thyroid nodule (principal); I10 Essential (primary) hypertension; E78.5 Hyperlipidemia, unspecified
CPT/HCPCS: 36415; 80053; 80061; 84439; 84443; 85027

== ENCOUNTER 2021-01-01 10:16 | Day surgery (SDC) | payer BC, OTHER ==
[2020-12-28 13:49] VITALS: BMI 34.5
[~2021-01-01 10:16] MED LIST changes: -ACETAMINOPHEN TAB 500 MG TAB PO ONE; -DEXAMETHASONE SOD PHOSPHATE 10 MG/ML 1 ML VIAL IV ONE; -HEPARIN SODIUM,PORCINE 5,000 UNIT/ML 1 ML VIAL SQ ONE; +LACTATED RINGERS 1,000 ML IV SCH; -LIDOCAINE 1% (10MG/ML) FOR IV START INTRADERMA PRN; -ONDANSETRON 4 MG/2 ML VIAL IVP ONE; -SCOPOLAMINE 1.5MG/72HR PATCH TRANSDERM ONE
[2021-01-01 10:50] VITALS: RESP 16; TEMP 97.6
[2021-01-01] MEDS ORDERED: LIDOCAINE 1% (10MG/ML) FOR IV START INTRADERMA ONE (10:59)
[2021-01-01] MEDS ORDERED: LIDOCAINE 1% INJ 10MG/ML (20 ML MDV) ONE (11:11)
[2021-01-01] MEDS ORDERED: PROPOFOL 10 MG/ML 20 ML VIAL IV ONE (11:11)
--- NOTE | 2021-01-01 11:27 | P.HPIHPCON ---
History of Present Illness H&P Date: 01/01/21 30-year-old female presents today for upper endoscopy. She is noted to have had a Lay fundoplication performed in August 2019. She did have this performed secondary to reflux. She states that she has had increased regurgitation and reflux since that time. She complains of vomiting episodes that are phlegm-like and also containing bile. She does take omeprazole distally with some success. She has no additional complaints at this time. Consent for Procedure: I have explained the operation/procedure to the patient, including the risks, benefits, side effects, alternative therapies (including not receiving the proposed treatment or service), the likelihood of the patient achieving his/her goals, and potential recuperation problems for the procedure/sedation/analgesia, as well as any blood products, if indicated. I also explained to the patient the risks, benefits and side effects of the alternatives, as well as the risks related to not receiving the proposed procedure, care, treatment, or services. - Review of Systems All systems: negative Past Medical History Past Medical History: GERD/Reflux, Hypertension Additional Past Medical History / Comment(s): current abdominal pain History of Any Multi-Drug Resistant Organisms: None Reported Past Surgical History: Tubal Ligation Additional Past Surgical History / Comment(s): alma fundlaplication, wisdom teeth removal. BILATERAL MYRINGOTOMY TUBES, Past Anesthesia/Blood Transfusion Reactions: No Reported Reaction Smoking Status: Former smoker - Past Family History Mother Family Medical History: No Reported History Medications and Allergies Home Medications Medication Instructions Recorded Confirmed Type Labetalol HCl 100 mg PO BID 12/28/20 01/01/21 History Omeprazole 20 mg PO DAILY 12/28/20 01/01/21 History Allergies Allergy/AdvReac Type Severity Reaction Status Date / Time No Known Allergies Allergy Verified 01/01/21 10:50 Surgical - Exam Osteopathic Statement: *. No significant issues noted on an osteopathic structural exam other than those noted in the History and Physical/Consult. Vital Signs Temp Pulse Resp BP Pulse Ox 97.6 F 87 16 130/77 99 01/01/21 10:44 01/01/21 10:44 01/01/21 10:44 01/01/21 10:44 01/01/21 10:44 - General well nourished, no distress - Respiratory normal respiratory effort - Abdomen Abdomen: soft, non tender - Psychiatric oriented to time, oriented to person, oriented to place Assessment and Plan Plan: 30-year-old female with history of regurgitation and reflux. She also has a history of a Lay fundoplication performed in August 2019. Plan is for upper endoscopy for further evaluation. Further recommendations after procedure.
--- NOTE | 2021-01-01 11:31 | P.PCN ---
Date of Procedure: 01/01/21 Preoperative Diagnosis: Reflux History of Lay fundoplication Postoperative Diagnosis: Moderate sized hiatal hernia Gastritis and duodenitis Procedure(s) Performed: EGD with biopsy Anesthesia: MAC Surgeon: Jenn Guzman Pathology: other (Biopsies of duodenum, antrum, esophagus) Condition: stable Disposition: same day Indications for Procedure: 30-year-old female who underwent Lay from application of August 2019 presents now with complaints of increased regurgitation and reflux. She also complains of some nausea and vomiting episodes. She takes omeprazole with minimal success. Plan is for upper endoscopy. Risks, benefits and alternatives were provided to the patient. Operative Findings: Moderate size hiatal hernia Gastritis Duodenitis Description of Procedure: The patient was brought into the endoscopy suite and placed in left lateral decubitus position and adequate sedation was achieved using conscious sedation. A bite block was placed and the endoscope was placed in the oropharynx and advanced under endoscopic visualization. The endoscope was advanced through the esophagus into the stomach, through the gastric antrum and in through the pylorus. The third portion of duodenum was visualized. The endoscope was then slowly withdrawn. The first portion of duodenum was noted to have mild inflammatory changes. Biopsies were taken. The antrum was noted to have mild infiltrative changes. Biopsies were taken. The gastric body distended normally and the gastric folds appeared normal and flattened with insufflation. No evidence of gastric polyps. A retroflexed view of the fundus and GE junction revealed a moderate-sized hiatal hernia. The esophagus appeared endoscopically normal. Distal biopsy was taken. Excess air was removed and the scope was withdrawn and the procedure was completed. The patient was then sent to postanesthesia care unit in stable condition.
[2021-01-01 12:16] VITALS: BP 126/83; PULSE 92
== END 2021-01-01 12:21 | disposition home or self-care (01) ==
LOC: ORWHC2ENDO 10:16
PROVIDERS: ATTEND Surgery
DX: K21.00 Gastro-esophageal reflux disease with esophagitis, without bleeding (principal); K44.9 Diaphragmatic hernia without obstruction or gangrene; I10 Essential (primary) hypertension; Z87.891 Personal history of nicotine dependence; Z79.899 Other long term (current) drug therapy
CPT/HCPCS: 81025; 88305; 43239; J2001; J2704

== ENCOUNTER 2021-09-23 10:34 | Outpatient (CLI) | payer BC ==
[2021-09-23 11:51] LABS: Appearance,Urine Cloudy (Clear); Bacteria,Urine Occasional /hpf; Bilirubin,Urine Negative (Negative); Blood,Urine Negative (Negative); Color,Urine Yellow; Glucose,Urine (UA) Negative (Negative); Ketones,Urine Negative (Negative); Leukocyte Esterase,Urine Large (Negative); Mucus,Urine Occasional /hpf; Nitrite,Urine Negative (Negative); Protein,Urine Trace (Negative); Squamous Epithelial Cell,Urine 35 /hpf (0-4); Urobilinogen,Urine <2.0 mg/dL (<2.0); WBC,Urine 52 /hpf (0-5)
[2021-09-23 11:59] LABS: Basophils % (A) 0 %; Eosinophils # (A) 0.1 k/uL (0-0.7); Eosinophils % (A) 1 %; HCT 29.1 % (34.0-46.0); HGB 9.5 gm/dL (11.4-16.0); Hypochromasia Slight; Lymphocytes # (A) 1.6 k/uL (1.0-4.8); Lymphocytes % (A) 17 %; MCH 26.1 pg (25.0-35.0); MCHC 32.6 g/dL (31.0-37.0); MCV 80.2 fL (80.0-100.0); Mean Platelet Volume 8.1; Monocytes # (A) 0.4 k/uL (0-1.0); Monocytes % (A) 4 %; Neutrophils # (A) 7.6 k/uL (1.3-7.7); Neutrophils % (A) 76 %; Platelet Count 414 k/uL (150-450); RBC 3.63 m/uL (3.80-5.40); RDW 15.2 % (11.5-15.5)
[2021-09-23 12:10] LABS: ALT 13 U/L (4-34); AST 25 U/L (14-36); African American GFR (CKD) >90 (>60 ml/min/1.73 sqM); Blood Urea Nitrogen 11 mg/dL (7-17); LDH 298 U/L (313-618); Magnesium 1.6 mg/dL (1.6-2.3); Non-African American GFR(CKD) >90 (>60 ml/min/1.73 sqM); Uric Acid 5.7 mg/dL (3.7-7.4)
[2021-09-23 12:20] LABS: Creatinine,Urine Random 101.5 mg/dL; Protein/Creatinine Ratio,Urine 0.108
[2021-09-23] MEDS ORDERED: BETAMET ACET-BETAMETH SOD PHOS 6 MG/ML MDV IM SCH (12:30)
[2021-09-23 12:42] LABS: INR 0.9 (<1.2); Partial Thromboplastin Time 24.6 sec (22.0-30.0); Prothrombin Time 9.6 sec (9.0-12.0)
[2021-09-23 13:05] VITALS: BP 135/78; PULSE 112; RESP 16; TEMP 96.4
--- NOTE | 2021-09-24 18:31 | P.MSEPDOC ---
Presenting Problems - Arrival Data Date of Arrival on Unit: 09/23/21 Time of Arrival on Unit: 10:40 Mode of Transport: Ambulatory - Complaint OB-Reason for Admission/Chief Complaint: Celestone Injection Medical History - Information : 2 Para: 1 - Gestational Age Gestational Age by ALVAREZ (wks/days): 35 Weeks and 6 Days Review of Systems - Review of Systems Constitutional: No problems Breast: No problems ENT: No problems Cardiovascular: No problems Respiratory: No problems Gastrointestinal: No problems Genitourinary: No problems Musculoskeletal: No problems Neurological: No problems Skin: No problems Vital Signs - Temperature Temperature: 96.4 F Temperature Source: Temporal Artery Scan - Pulse Right Sitting Brachial Pulse Rate: 112 Pulse Assessment Method: Pulse Oximetry - Respirations Respiratory Rate: 16 Oxygen Delivery Method: Room Air O2 Sat by Pulse Oximetry: 100 - Blood Pressure Right Arm Sitting Blood Pressure: 135/78 Blood Pressure Mean: 97 Blood Pressure Source: Automatic Cuff Medical Screen Scoring - Assessment - Baby A Baseline FHR: 130 Heart Rate - NICHD Category: Category I (Normal) Physician Notification - Physician Notified Physician Notified Date: 09/23/21 Physician Notified Time: 12:30 Physician: Tucker Power New Order Received: Yes - Notification Comment Comment: discharge Maternal Triage Index - Maternal Triage Index Presenting for scheduled procedure w/no complaint: No - Stat/Priority 1 Stat Priority 1: No - Urgent/Priority 2 Urgent Priority 2: No - Prompt/Priority 3 Prompt Priority 3: Yes Criteria Met for Priority 3: PIH work up Disposition - Disposition OB Disposition: Discharge to home Discharge Date: 09/23/21 Discharge Time: 12:40 I agree with the RN Medical Screening Exam: Yes Case reviewed; plan agreed upon as documented in EMR&OBIX.: Yes Diagnosis: GESTATIONAL HTN W/O SIGNIFICANT PROTEINURIA, THIRD TRIMESTER
== END 2021-09-23 12:40 | disposition home or self-care (01) ==
LOC: FBPOP 10:34
PROVIDERS: ATTEND Obstetrics & Gynecology
DX: O13.3 Gestational [pregnancy-induced] hypertension without significant proteinuria, third trimester (principal); Z3A.35 35 weeks gestation of pregnancy
CPT/HCPCS: 59025; 99215; 82570; 84156; 82565; 83615; 83735; 84450; 84460; 84520; 84550; 85025; 85384; 85610; 85730; 81001; J0702

== ENCOUNTER 2021-09-24 13:24 | Outpatient (CLI) | payer BC ==
[2021-09-24] MEDS ORDERED: BETAMET ACET-BETAMETH SOD PHOS 6 MG/ML MDV IM SCH (13:30)
--- NOTE | 2021-09-24 18:30 | P.MSEPDOC ---
Presenting Problems - Arrival Data Date of Arrival on Unit: 09/24/21 Time of Arrival on Unit: 13:24 Mode of Transport: Ambulatory - Complaint OB-Reason for Admission/Chief Complaint: Celestone Injection Medical History - Information : 2 Para: 1 Term: 1 : 0 Abortions: Spontaneous or Elective: 0 Number of Living Children: 1 - Gestational Age Gestational Age by ALVAREZ (wks/days): 36 Weeks and 0 Days Review of Systems - Review of Systems Constitutional: No problems Breast: No problems ENT: No problems Cardiovascular: No problems Respiratory: No problems Gastrointestinal: No problems Genitourinary: No problems Musculoskeletal: No problems Neurological: No problems Skin: No problems Physician Notification - Physician Notified Physician Notified Date: 09/24/21 Physician Notified Time: 13:24 Physician: Tucker Power Order Received: No Maternal Triage Index - Maternal Triage Index Presenting for scheduled procedure w/no complaint: Yes - Scheduled/Requesting Priority 5 Scheduled/Requesting Priority 5: Yes Criteria Met for Priority 5: Patient here for scheduled celestone injection Disposition - Disposition OB Disposition: Discharge to home, Written follow up instructions reviewed Discharge Date: 09/24/21 Discharge Time: 13:39 I agree with the RN Medical Screening Exam: Yes Case reviewed; plan agreed upon as documented in EMR&OBIX.: Yes Diagnosis: GESTATIONAL HTN W/O SIGNIFICANT PROTEINURIA, THIRD TRIMESTER
== END 2021-09-24 13:39 | disposition home or self-care (01) ==
LOC: FBPOP 13:24
PROVIDERS: ATTEND Obstetrics & Gynecology
DX: O13.3 Gestational [pregnancy-induced] hypertension without significant proteinuria, third trimester (principal); Z3A.36 36 weeks gestation of pregnancy
CPT/HCPCS: 99214; 96372; J0702

== ENCOUNTER 2021-10-01 05:45 | Inpatient (IN) | payer BC ==
--- NOTE | 2021-09-30 09:08 | P.HPOB ---
History of Present Illness H&P Date: 09/30/21 Chief Complaint: Gestational hypertension This patient is a pleasant 31 yr female EDC 10/22/2021 estimated gestational age 37 0/7 weeks who presents to L&D for induction of labor secondary to gestational hypertension. Patients history is such that she was induced last p regnancy for gestational HTN. Has been on 81mg ASA and placed on Labetalol, however most recently blood pressure has increased to 170/92 and 148/97. Pre- eclampsia evaluation was negative. Per current recommendations, plan to proceed with delivery at this time. She has been watched with growth ultrasounds and testing. Review of Systems Genitourinary: Reports Menstruation: Reports amenorrhea Past Medical History Past Medical History: GERD/Reflux, Hypertension Additional Past Medical History / Comment(s): current abdominal pain History of Any Multi-Drug Resistant Organisms: None Reported Past Surgical History: Tubal Ligation Additional Past Surgical History / Comment(s): alma fundlaplication, wisdom teeth removal. BILATERAL MYRINGOTOMY TUBES, Past Anesthesia/Blood Transfusion Reactions: No Reported Reaction Past Psychological History: No Psychological Hx Reported Smoking Status: Never smoker Past Alcohol Use History: None Reported Past Drug Use History: None Reported - Past Family History Mother Family Medical History: No Reported History Medications and Allergies Home Medications Medication Instructions Recorded Confirmed Type Labetalol HCl 100 mg PO BID 12/28/20 09/24/21 History Omeprazole 20 mg PO DAILY 12/28/20 09/24/21 History Aspirin 81 mg PO DAILY 09/23/21 09/24/21 History Cephalexin [Keflex] 500 mg PO Q6HR 09/23/21 09/24/21 History Pnv No.154/Iron Fum/Folic Acid 1 tab PO DAILY 09/23/21 09/24/21 History [ Plus Vitamin Tablet] Allergies Allergy/AdvReac Type Severity Reaction Status Date / Time No Known Allergies Allergy Verified 09/24/21 13:27 Exam - OBG Physical Exam Abdomen: bowel sounds normal, no diffuse tenderness, no bruit present, no guarding noted, no hepatomegaly, no splenomegaly, no mass Vulva: both: normal Vagina: normal moisture, no discharge Cervix: no lesion (Cervix in the office was 2cm), no discharge Uterus: enlarged (Fundal height was 38 cm.) Results labs: O positive, Rubella Immune, XeuZ-PBY-GEN eng, Glucola 151 with normal 3hr GTT, GBS negative, Ultrasound on 09/18 showed Vtx 6#7oz (75%). Assessment and Plan Assessment: This is a pleasant 31 yr female estimated gestational age 37 weeks with gestational hypertension, worsening. Current recommendations are to proceed with delivery. Patient has received steroids last week. Plan is induction of labor and anticipate . (1) 37 weeks gestation of Status: Acute Code(s): Z3A.37 - 37 WEEKS GESTATION OF SNOMED Code(s): 12821975 (2) Gestational hypertension Status: Acute Code(s): O13.9 - GESTATIONAL HTN W/O SIGNIFICANT PROTEINURIA, UNSP TRIMESTER SNOMED Code(s): 97194468
[2021-10-01] MEDS: LACTATED RINGERS 1,000 ML IV SCH ×3 (05:59→15:09)
[2021-10-01] MEDS ORDERED: TERBUTALINE 1 MG/ML VIAL SQ PRN (06:14)
[2021-10-01] MEDS ORDERED: METHYLERGONOVINE 0.2 MG/ML 1 ML AMP IM PRN (06:14)
[2021-10-01] MEDS ORDERED: CARBOPROST TROMETHAMINE 250 MCG/ML 1 ML AMP IM PRN (06:14)
[2021-10-01] MEDS ORDERED: OXYTOCIN 10 UNIT/ML 1 ML VIAL IM PRN (06:14)
[2021-10-01] MEDS ORDERED: LIDOCAINE 1% (PF) 10 MG/ML (30 ML SDV) SQ PRN (06:14)
[2021-10-01] MEDS ORDERED: OXYTOCIN 30 UNITS/500 ML NS 30 UNIT in SALINE 1 500ML.BAG IV SCH ×2 (06:14→19:46)
[2021-10-01 06:23] LABS: Basophils # (A) 0.1 k/uL (0-0.2); Basophils % (A) 1 %; Eosinophils # (A) 0.1 k/uL (0-0.7); Eosinophils % (A) 1 %; HCT 31.3 % (34.0-46.0); HGB 10.1 gm/dL (11.4-16.0); Hypochromasia Slight; Lymphocytes # (A) 3.1 k/uL (1.0-4.8); Lymphocytes % (A) 19 %; MCH 25.9 pg (25.0-35.0); MCHC 32.2 g/dL (31.0-37.0); MCV 80.4 fL (80.0-100.0); Mean Platelet Volume 7.6; Monocytes # (A) 0.8 k/uL (0-1.0); Monocytes % (A) 5 %; Neutrophils # (A) 12.4 k/uL (1.3-7.7); Neutrophils % (A) 74 %; Platelet Count 496 k/uL (150-450); RBC 3.89 m/uL (3.80-5.40); WBC 16.8 k/uL (3.8-10.6)
[2021-10-01] MEDS ORDERED: ROPIVACAINE 5MG/ML 20ML VIAL ONE (13:03)
[2021-10-01] MEDS ORDERED: fentaNYL (PF) 50 MCG/ML 5 ML AMP ONE (13:03)
[2021-10-01] MEDS ORDERED: SODIUM CHLORIDE 0.9% 100 ML BAG ONE (13:03)
--- NOTE | 2021-10-01 19:36 | P.PROBDLV ---
Vaginal Delivery Note - . Vaginal Delivery Note: Normal vaginal delivery viable male Apgars 9 and 9 delivery time was 1913 hrs. Please see dictated H&P for intimate details of this patient's admission. In summary this is a pleasant 31-year-old 2 para 1 female 37-0/7 weeks gestation admitted to labor and delivery for induction of labor secondary to gestational hypertension. Patient is admitted she is fingertip dilated has artificial rupture membranes for clear fluid. Labor is induced with Pitocin per protocol. Labor progresses and she does get an epidural for pain control. Patient gets to complete pushes approximately 3 times pushes the head to the perineum. Posterior perineum was supported and we have controlled delivery of the 's head over the intact perineum. Mouth and nares are bulb suctioned. Is no evidence of nuchal cord. With gentle downward traction we then have deliver the anterior and posterior shoulder and rest this infant's body. This is a vigorous viable male infant Apgars are 9 and 9 delivery time was 1913 hrs. Infant has spontaneous respirations and good cry and grossly appears normal. The umbilical cord does appear quite short and therefore is clamped and cut. is late on the mother's abdomen. The placenta is then spontaneously delivered intact. Estimated blood loss is approximately 150 mL. Inspection of perineum shows second-degree laceration which was repaired with 3- 0 Vicryl in the usual fashion. Excellent reapproximation is noted. There are no complications. All counts are correct 3. Infant and mother are stable in delivery room
[2021-10-01] MEDS ORDERED: diphenhydrAMINE 25 MG CAP PO PRN (19:46)
[2021-10-01] MEDS ORDERED: HYDROCORTISONE 2.5% RECTAL CREAM 30 GM TUBE RECTAL PRN (19:46)
[2021-10-01] MEDS ORDERED: BENZOCAINE/MENTHOL SPRAY 1 GM/SPRAY AEROSOL TOPICAL PRN (19:46)
[2021-10-01] MEDS ORDERED: diphenhydrAMINE 50 MG/ML 1 ML VIAL IVP PRN (19:46)
[2021-10-01] MEDS ORDERED: bisacodyL 10 MG SUPP RECTAL PRN (19:46)
[2021-10-01] MEDS ORDERED: LANOLIN CREAM 5 GM TUBE TOPICAL PRN (19:46)
[2021-10-01] MEDS ORDERED: ZOLPIDEM 5 MG TAB PO PRN (19:46)
[2021-10-01] MEDS ORDERED: SIMETHICONE 80 MG CHEWABLE PO PRN (19:46)
[2021-10-01 21:08] VITALS: RESP 16
[2021-10-01] MEDS: SENNOSIDES-DOCUSATE SODIUM 1 EACH TAB PO SCH ×2 (22:22→22:23)
[2021-10-01] MEDS: IBUPROFEN 600 MG TAB PO PRN (22:22)
[2021-10-01] MEDS: LABETALOL 100 MG TAB PO SCH (22:23)
[2021-10-02] MEDS: ACETAMINOPHEN TAB 325 MG TAB PO PRN ×2 (03:32→21:14)
--- NOTE | 2021-10-02 06:27 | P.PNOBGVD ---
Subjective - Subjective Patient reports: Reports appetite normal, Reports voiding normally, Reports pain well controlled, Reports ambulating normally : doing well Objective - Latest Vital Signs Latest vital signs: Vital Signs Temp Pulse Resp BP 10/02/21 03:33 97.8 F 87 16 119/69 10/01/21 23:35 97.4 F L 112 H 16 116/66 10/01/21 21:30 116 H 16 139/92 10/01/21 21:00 106 H 16 143/86 10/01/21 20:30 109 H 16 141/80 10/01/21 20:15 104 H 16 144/83 10/01/21 20:00 107 H 18 150/74 10/01/21 19:45 106 H 16 143/77 10/01/21 19:30 97.4 F L 110 H 16 149/76 Intake and Output 10/01/21 10/01/21 10/02/21 14:59 22:59 06:59 Intake Total 404.5 Output Total 895 Balance -490.5 Intake: Intake, IV Titration 404.5 Amount Oxytocin 30 Units/500 ml 404.5 Ns 30 unit In Saline 1 500ml.bag @ Per Protocol IV .Q0M [facility] Rx#:[id number] Output: Urine 600 Output, Quantitative 295 Blood Loss Other: # Voids 1 1 1 - Exam Lungs: bilateral: normal Chest: Normal S1, Normal S2 Extremities: Present: normal Abdomen: Present: normal appearance, soft Uterus: Present: normal, firm Assessment and Plan Assessment: Post day #1. Patient is resting without complaints. I restarted her labetalol at 100 mg by mouth twice a day. Blood pressures are excellent. Plan today is to continue routine care. If her blood pressures remain well vital discharge home tomorrow morning. (1) 37 weeks gestation of Current Visit: No Status: Acute Code(s): Z3A.37 - 37 WEEKS GESTATION OF SNOMED Code(s): 14733789 (2) Gestational hypertension Current Visit: No Status: Acute Code(s): O13.9 - GESTATIONAL HTN W/O SIGNIFICANT PROTEINURIA, UNSP TRIMESTER SNOMED Code(s): 13845230
[2021-10-02] MEDS: IBUPROFEN 600 MG TAB PO PRN ×2 (06:57→15:58)
[2021-10-02 07:14] LABS: Basophils % (A) 0 %; Eosinophils # (A) 0.1 k/uL (0-0.7); Eosinophils % (A) 0 %; HGB 8.8 gm/dL (11.4-16.0); Hypochromasia Slight; Lymphocytes # (A) 2.2 k/uL (1.0-4.8); Lymphocytes % (A) 16 %; MCH 25.6 pg (25.0-35.0); MCHC 31.5 g/dL (31.0-37.0); MCV 81.2 fL (80.0-100.0); Mean Platelet Volume 8.1; Monocytes # (A) 0.7 k/uL (0-1.0); Monocytes % (A) 5 %; Neutrophils # (A) 11.1 k/uL (1.3-7.7); Neutrophils % (A) 78 %; Platelet Count 358 k/uL (150-450); RBC 3.45 m/uL (3.80-5.40); WBC 14.2 k/uL (3.8-10.6)
[2021-10-02] MEDS: LABETALOL 100 MG TAB PO SCH ×2 (08:35→21:12)
[2021-10-02] MEDS: SENNOSIDES-DOCUSATE SODIUM 1 EACH TAB PO SCH ×2 (08:35→21:12)
[2021-10-03] MEDS: IBUPROFEN 600 MG TAB PO PRN ×2 (00:42→08:00)
--- NOTE | 2021-10-03 06:22 | P.PNOBGVD ---
Subjective - Subjective Patient reports: Reports appetite normal, Reports voiding normally, Reports pain well controlled, Reports ambulating normally [place]: doing well Objective - Latest Vital Signs Latest vital signs: Vital Signs Temp Pulse Resp BP Pulse Ox 10/02/21 23:50 97.8 F 105 H 16 105/61 97 10/02/21 20:00 97.6 F 110 H 16 123/72 97 10/02/21 16:00 98.5 F 95 16 111/76 10/02/21 08:30 98.0 F 80 16 125/72 - Exam Lungs: bilateral: normal Chest: Normal S1, Normal S2 Extremities: Present: normal Abdomen: Present: normal appearance, soft Uterus: Present: normal, firm - Labs Labs: Abnormal Lab Results - Last 24 Hours (Table) 10/02/21 Range/Units 06:57 WBC 14.2 H (3.8-10.6) k/uL RBC 3.45 L (3.80-5.40) m/uL Hgb 8.8 L (11.4-16.0) gm/dL Hct 28.0 L (34.0-46.0) % Neutrophils # 11.1 H (1.3-7.7) k/uL Assessment and Plan Assessment: day #2. Patient is resting without complaints and wishes to go home. Vital signs are stable and she is afebrile. Uterus is firm nontender she's having normal lochia. Hemoglobin yesterday was 8.8 however she was only 10.1. Deliveries this is consistent with normal blood loss. Plan today is to continue routine care and her blood pressures her Lovenox direction going to hold her labetalol. She'll continue to monitor them at home follow up with me in the office. (1) 37 weeks gestation of Current Visit: No Status: Acute Code(s): Z3A.37 - 37 WEEKS GESTATION OF [place] EGNANCY SNOMED Code(s): 13313157 (2) Gestational hypertension Current Visit: No Status: Acute Code(s): O13.9 - GESTATIONAL HTN W/O SIGNIFICANT PROTEINURIA, UNSP TRIMESTER SNOMED Code(s): 45448379
[2021-10-03] MEDS: ACETAMINOPHEN TAB 325 MG TAB PO PRN (06:32)
--- NOTE | 2021-10-03 06:32 | P.DS ---
Providers Date of admission: 10/01/21 05:45 Expected date of discharge: 10/03/21 Attending physician: Tucker Power Primary care physician: Don Robles - Discharge Diagnosis(es) (1) 37 weeks gestation of Current Visit: No Status: Acute (2) Gestational hypertension Current Visit: No Status: Acute Hospital Course: Please see dictated H&P for intimate details of this patient's admission. Brief summary this is a pleasant 31-year-old 2 para 1 female 37-0/7 weeks gestation admitted to labor and delivery for induction of labor secondary to gestational hypertension. Patient is admitted she is uncomplicated induction of labor was on have a vaginal delivery viable male infant. Please see dictated delivery note. day #1 patient is doing well is restarted on her labetalol. there were to her blood pressures are lower therefore did discontinue her labetalol she felt be stable for discharge home follow up with me check her blood pressures at home and monitors an outpatient. Procedures: Induction of labor and normal vaginal delivery Plan - Discharge Summary New Discharge Prescriptions: New Ibuprofen [Motrin] 600 mg PO Q6HR PRN #30 tab PRN Reason: Mild Pain (Scale 1 To 3) Discontinued Labetalol HCl 100 mg PO BID No Action Pnv No.154/Iron Fum/Folic Acid [ Plus Vitamin Tablet] 1 tab PO DAILY Omeprazole 20 mg PO DAILY Aspirin 81 mg PO DAILY Discharge Medication List Omeprazole 20 mg PO DAILY 12/28/20 [History] Aspirin 81 mg PO DAILY 09/23/21 [History] Pnv No.154/Iron Fum/Folic Acid [ Plus Vitamin Tablet] 1 tab PO DAILY 09/23/21 [History] Ibuprofen [Motrin] 600 mg PO Q6HR PRN #30 tab 10/03/21 [Rx] Follow up Appointment(s)/Referral(s): Tucker Power MD [STAFF PHYSICIAN] - 11/15/21 10:15 am Patient Instructions/Handouts: Vaginal Delivery (DC) Activity/Diet/Wound Care/Special Instructions: No intercourse or anything per vagina for 6 weeks. Please call if any fever, chills, excessive vaginal bleeding, and/or abdominal pain. Discharge Disposition: HOME SELF-CARE
[2021-10-03 07:38] VITALS: BP 123/80; PULSE 98; TEMP 97.6
[2021-10-03] MEDS: SENNOSIDES-DOCUSATE SODIUM 1 EACH TAB PO SCH (08:02)
== END 2021-10-03 10:30 | disposition home or self-care (01) | DRG 807 ==
LOC: 4FBP 05:45
PROVIDERS: ADMIT Obstetrics & Gynecology; ATTEND Obstetrics & Gynecology
PROC: 10E0XZZ Delivery of Products of Conception, External Approach (ICD-10-PCS; principal; 2021-10-01)
PROC: 0KQM0ZZ Repair Perineum Muscle, Open Approach (ICD-10-PCS; 2021-10-01)
PROC: 4A0HXCZ Measurement of Products of Conception, Cardiac Rate, External Approach (ICD-10-PCS; 2021-10-01)
PROC: 10907ZC Drainage of Amniotic Fluid, Therapeutic from Products of Conception, Via Natural or Artificial Opening (ICD-10-PCS; 2021-10-01)
PROC: 3E033VJ Introduction of Other Hormone into Peripheral Vein, Percutaneous Approach (ICD-10-PCS; 2021-10-01)
DX: O13.4 Gestational [pregnancy-induced] hypertension without significant proteinuria, complicating childbirth (principal); Z37.0 Single live birth; O70.1 Second degree perineal laceration during delivery; O99.62 Diseases of the digestive system complicating childbirth; K21.9 Gastro-esophageal reflux disease without esophagitis; Z3A.37 37 weeks gestation of pregnancy; Z79.82 Long term (current) use of aspirin; Z98.51 Tubal ligation status
CPT/HCPCS: 85025; 86850; 86900; 86901

== ENCOUNTER 2021-10-05 09:11 | Inpatient (IN) | payer BC ==
[2021-10-05] MEDS ORDERED: KETOROLAC 15 MG/ML 1 ML VIAL IVP STA (09:53)
[2021-10-05] MEDS ORDERED: SODIUM CHLORIDE 0.9% 1,000 ML IV STA (09:53)
[2021-10-05 10:56] LABS: Calcium 8.5 mg/dL (8.4-10.2); Potassium 4.1 mmol/L (3.5-5.1); Total Bilirubin 0.7 mg/dL (0.2-1.3); Total Protein 6.3 g/dL (6.3-8.2)
--- NOTE | 2021-10-05 11:16 | ED ---
General Adult HPI - General Chief complaint: Recheck/Abnormal Lab/Rx Stated complaint: Post Complications Time Seen by Provider: 10/05/21 09:46 Source: patient Mode of arrival: wheelchair Limitations: no limitations - History of Present Illness Initial comments: Patient is a 31-year-old female who is 5 days from vaginal presenting with shortness of breath and back pain. Patient states that she has felt like she can't catch her breath and has felt "like my heart is beating out of my chest". Patient is also complaining of low back pain that wraps around to the front of the abdomen. Patient admits to a low-grade fever of 100 yesterday, she has been taking Motrin insistently for pain control. Patient states that she is not breast-feeding and her vaginal bleeding has not increased. She denies any pelvic pain, dysuria, hematuria, urgency, frequency, constipation, diarrhea, nausea, vomiting, chest pain, purulent vaginal discharge, breast pain. - Related Data Home Medications Medication Instructions Recorded Confirmed Omeprazole 20 mg PO BID 12/28/20 10/05/21 Pnv No.154/Iron Fum/Folic Acid 1 tab PO DAILY 09/23/21 10/05/21 [ Plus Vitamin Tablet] Previous Rx's Medication Instructions Recorded Ibuprofen [Motrin] 600 mg PO Q6HR PRN #30 tab 10/03/21 Allergies Allergy/AdvReac Type Severity Reaction Status Date / Time No Known Allergies Allergy Verified 10/05/21 13:29 Review of Systems ROS Statement: Those systems with pertinent positive or pertinent negative responses have been documented in the HPI. ROS Other: All systems not noted in ROS Statement are negative. Past Medical History Past Medical History: GERD/Reflux, Hypertension Additional Past Medical History / Comment(s): Gestational hypertension History of Any Multi-Drug Resistant Organisms: None Reported Past Surgical History: Tubal Ligation Additional Past Surgical History / Comment(s): Hiatal hernia surgery, gallbladde r removal, tubes placed in ears Past Anesthesia/Blood Transfusion Reactions: No Reported Reaction Past Psychological History: No Psychological Hx Reported Smoking Status: Former smoker Past Alcohol Use History: None Reported Past Drug Use History: None Reported - Past Family History Mother Family Medical History: Hypertension General Exam Limitations: no limitations General appearance: alert, in no apparent distress Head exam: Present: atraumatic, normocephalic, normal inspection Eye exam: Present: normal appearance, EOMI. Absent: scleral icterus ENT exam: Present: normal exam, mucous membranes moist Neck exam: Present: normal inspection Respiratory exam: Present: normal lung sounds bilaterally. Absent: respiratory distress, wheezes, rales, rhonchi, stridor Cardiovascular Exam: Present: normal rhythm, tachycardia, normal heart sounds. Absent: systolic murmur, diastolic murmur, rubs, gallop, clicks GI/Abdominal exam: Present: soft, normal bowel sounds. Absent: distended, tenderness, guarding, rebound, rigid Back exam: Present: normal inspection, CVA tenderness (L). Absent: CVA tenderness (R) Neurological exam: Present: alert, oriented X3, CN II-XII intact Psychiatric exam: Present: normal affect, normal mood Skin exam: Present: warm, dry, intact, normal color. Absent: rash Course Vital Signs 10/05/21 10/05/21 10/05/21 09:22 09:45 09:47 Temperature 98 F Pulse Rate 119 H 113 H Pulse Rate [ 107 H Pulse Oximetery ] Respiratory 18 20 Rate Blood Pressure 122/80 124/76 O2 Sat by Pulse 99 100 Oximetry 10/05/21 10/05/21 10/05/21 11:17 15:05 15:17 Temperature 99.6 F 103.2 F H Pulse Rate 122 H 186 H Pulse Rate [ Pulse Oximetery ] Respiratory 16 24 Rate Blood Pressure 130/91 153/104 O2 Sat by Pulse 98 99 Oximetry 10/05/21 10/05/21 10/05/21 16:02 16:03 16:04 Temperature 102.8 F H Pulse Rate 170 H Pulse Rate [ Pulse Oximetery ] Respiratory 20 Rate Blood Pressure 143/65 136/70 O2 Sat by Pulse 95 Oximetry 10/05/21 10/05/21 10/05/21 16:21 16:53 17:14 Temperature 101.4 F H Pulse Rate 152 H 146 H Pulse Rate [ Pulse Oximetery ] Respiratory 20 20 Rate Blood Pressure 119/64 118/51 O2 Sat by Pulse 95 95 Oximetry 10/05/21 10/05/21 18:22 18:36 Temperature 98.8 F Pulse Rate 131 H Pulse Rate [ Pulse Oximetery ] Respiratory 20 Rate Blood Pressure 111/61 O2 Sat by Pulse 94 L Oximetry - Reevaluation(s) Reevaluation #1: Total signs: Heart rate 158, BP 130/91, oxygen saturation 98%, temperature 103 Cardiopulmonary: Lungs are clear to auscultation, tachycardic 1 refill: Adequate capillary refill Peripheral pulses: Strong peripheral pulses Skin: Warm, dry, normal color Patient was given 1 g of Tylenol and started on clindamycin and gentamicin 10/05/21 14:45 Medical Decision Making - Medical Decision Making Patient is a 31-year-old female presenting with chief complaint of fever, shortness of breath, back pain. Patient is a , 4 days after a vaginal . She is not breast-feeding and admits to still experiencing bleeding and a normal consistent rate. Quotation. There is no tenderness over the bladder or uterus and there are bowel sounds in all 4 quadrants. There is mild discomfort when checking for CVA tenderness on the left side. Lab work is remarkable for WBC of 20. Hemoglobin is 9.4. Creatinine is elevated at 1.51. D-dimer is 3. Urine was obtained via clean catch, it is suspicious for UTI but it is worth noting that it is contaminated due to her vaginal bleeding. Chest x-ray and KUB x-ray unremarkable for possible recurrent hiatal hernia. CTA of the chest shows no pulmonary embolism. Initial EKG is remarkable for sinus tachycardia. Patient was started on Tylenol, morphine, Rocephin, clindamycin, gentamicin, as treatment for potential UTI and endometritis, she was given 1 L fluid bolus and placed on maintenance rate of 130 mL per hour. At approximately 15:25 patient went into SVT confirmed via EKG. Dr. Christensen authorized administration of 2 rounds of 6 mg adenosine, and one round of 12 mg adenosine. Patient was still in SVT after administration. Cardizem bolus 10mg and drip 5mg were ordered. On reassessment patient was at rate of 143 in sinus tachycardia, confirmed by repeat EKG assessed by the attending physician. Cardi zem was held, nurse given instructions to initiate Cardizem that has been ordered and if she returns into SVT. I spoke with Dr. Singh who agreed to admit the patient. I spoke with Dr. Dempsey as a consult on this case. I informed the patient the plans to admit her. She will be admitted to telemetry. She conveyed verbal understanding and agreed to the plan. I discussed this case with my attending Dr. Christensen. - Lab Data Result diagrams: 10/05/21 10:37 10/05/21 10:37 Lab Results 10/05/21 10/05/21 10/05/21 Range/Units 10:37 10:37 10:37 WBC 20.7 H (3.8-10.6) k/uL RBC 3.70 L (3.80-5.40) m/uL Hgb 9.4 L (11.4-16.0) gm/dL Hct 29.4 L (34.0-46.0) % MCV 79.5 L (80.0-100.0) fL MCH 25.3 (25.0-35.0) pg MCHC 31.9 (31.0-37.0) g/dL RDW 15.3 (11.5-15.5) % Plt Count 376 (150-450) k/uL MPV 7.4 Neutrophils % 90 % Lymphocytes % 4 % Monocytes % 5 % Eosinophils % 0 % Basophils % 0 % Neutrophils # 18.5 H (1.3-7.7) k/uL Lymphocytes # 0.9 L (1.0-4.8) k/uL Monocytes # 1.0 (0-1.0) k/uL Eosinophils # 0.1 (0-0.7) k/uL Basophils # 0.0 (0-0.2) k/uL Hypochromasia Slight D-Dimer (<0.60) mg/L FEU Sodium 136 L (137-145) mmol/L Potassium 4.1 (3.5-5.1) mmol/L Chloride 104 (98-107) mmol/L Carbon Dioxide 23 (22-30) mmol/L Anion Gap 9 mmol/L BUN 17 (7-17) mg/dL Creatinine 1.51 H (0.52-1.04) mg/dL Est GFR (CKD-EPI)AfAm 53 (>60 ml/min/1.73 sqM) Est GFR (CKD-EPI)NonAf 46 (>60 ml/min/1.73 sqM) Glucose 129 H (74-99) mg/dL Plasma Lactic Acid Hu (0.7-2.0) mmol/L Calcium 8.5 (8.4-10.2) mg/dL Total Bilirubin 0.7 (0.2-1.3) mg/dL AST 28 (14-36) U/L ALT 15 (4-34) U/L Alkaline Phosphatase 171 H (38-126) U/L Troponin I (0.000-0.034) ng/mL Total Protein 6.3 (6.3-8.2) g/dL Albumin 3.0 L (3.5-5.0) g/dL Amylase 38 (30-110) U/L Lipase 19 L (23-300) U/L Urine Color Yellow Urine Appearance Turbid H (Clear) Urine pH 6.0 (5.0-8.0) Ur Specific [place] 1.024 (1.001-1.035) Urine Protein 2+ H (Negative) Urine Glucose (UA) Negative (Negative) Urine Ketones Negative (Negative) Urine Blood Large H (Negative) Urine Nitrite Positive H (Negative) Urine Bilirubin Negative (Negative) Urine Urobilinogen 2.0 (<2.0) mg/dL Ur Leukocyte Esterase Large H (Negative) Urine RBC >182 H (0-5) /hpf Urine WBC >182 H (0-5) /hpf Urine WBC Clumps Many H (None) /hpf Ur Squamous Epith Cells 11 H (0-4) /hpf Urine Bacteria Occasional H (None) /hpf Urine Mucus Rare H (None) /hpf 10/05/21 10/05/21 10/05/21 Range/Units 10:37 10:37 11:51 WBC (3.8-10.6) k/uL RBC (3.80-5.40) m/uL Hgb (11.4-16.0) gm/dL Hct (34.0-46.0) % MCV (80.0-100.0) fL MCH (25.0-35.0) pg MCHC (31.0-37.0) g/dL RDW (11.5-15.5) % Plt Count (150-450) k/uL MPV Neutrophils % % Lymphocytes % % Monocytes % % Eosinophils % % Basophils % % Neutrophils # (1.3-7.7) k/uL Lymphocytes # (1.0-4.8) k/uL Monocytes # (0-1.0) k/uL Eosinophils # (0-0.7) k/uL Basophils # (0-0.2) k/uL Hypochromasia D-Dimer 3.00 H (<0.60) mg/L FEU Sodium (137-145) mmol/L Potassium (3.5-5.1) mmol/L Chloride (98-107) mmol/L Carbon Dioxide (22-30) mmol/L Anion Gap mmol/L BUN (7-17) mg/dL Creatinine (0.52-1.04) mg/dL Est GFR (CKD-EPI)AfAm (>60 ml/min/1.73 sqM) Est GFR (CKD-EPI)NonAf (>60 ml/min/1.73 sqM) Glucose (74-99) mg/dL Plasma Lactic Acid Hu 1.3 (0.7-2.0) mmol/L Calcium (8.4-10.2) mg/dL Total Bilirubin (0.2-1.3) mg/dL AST (14-36) U/L ALT (4-34) U/L Alkaline Phosphatase (38-126) U/L Troponin I <0.012 (0.000-0.034) ng/mL Total Protein (6.3-8.2) g/dL Albumin (3.5-5.0) g/dL Amylase (30-110) U/L Lipase (23-300) U/L Urine Color Urine Appearance (Clear) Urine pH (5.0-8.0) Ur Specific [place] (1.001-1.035) Urine Protein (Negative) Urine Glucose (UA) (Negative) Urine Ketones (Negative) Urine Blood (Negative) Urine Nitrite (Negative) Urine Bilirubin (Negative) Urine Urobilinogen (<2.0) mg/dL Ur Leukocyte Esterase (Negative) Urine RBC (0-5) /hpf Urine WBC (0-5) /hpf Urine WBC Clumps (None) /hpf Ur Squamous Epith Cells (0-4) /hpf Urine Bacteria (None) /hpf Urine Mucus (None) /hpf Disposition Clinical Impression: Supraventricular tachycardia, Sepsis Disposition: ADMITTED IP TO THIS [facility] Condition: Stable Time of Disposition: 16:57 Decision to Admit Reason: Admit from EC Decision Date: 10/05/21 Decision Time: 16:57
[2021-10-05 11:24] LABS: Basophils % (A) 0 %; Eosinophils # (A) 0.1 k/uL (0-0.7); Eosinophils % (A) 0 %; HCT 29.4 % (34.0-46.0); HGB 9.4 gm/dL (11.4-16.0); Hypochromasia Slight; Lymphocytes # (A) 0.9 k/uL (1.0-4.8); Lymphocytes % (A) 4 %; MCH 25.3 pg (25.0-35.0); MCHC 31.9 g/dL (31.0-37.0); MCV 79.5 fL (80.0-100.0); Mean Platelet Volume 7.4; Monocytes % (A) 5 %; Neutrophils # (A) 18.5 k/uL (1.3-7.7); Neutrophils % (A) 90 %; Platelet Count 376 k/uL (150-450); RDW 15.3 % (11.5-15.5); WBC 20.7 k/uL (3.8-10.6)
--- NOTE | 2021-10-05 11:43 | XR ---
KUB HISTORY: Abdominal pain Frontal KUB and 2 images There is retrocardiac lucency which may represent hiatal hernia, postop changes are noted near the ga stroesophageal junction. There is no evident bowel obstruction or pneumoperitoneum. Lung bases are cl ear. No pathologic calcification is evident. IMPRESSION: Correlate for appropriate surgical history, possible recurrent hiatal hernia
--- NOTE | 2021-10-05 11:44 | XR ---
EXAMINATION TYPE: XR chest 2V DATE OF EXAM: 10/05/2021 COMPARISON: Chest x-ray 04/17/2018 HISTORY: Shortness of breath TECHNIQUE: Frontal and lateral views of the chest are obtained. FINDINGS: Retrocardiac density with central lucency is consistent with hiatal hernia. Postop changes are noted at the gastroesophageal junction. There are overlying leads. No evident airspace disease, pneumothorax, or pleural effusion. Heart size is within normal limits. Pulmonary vascularity and noel show no interval change. IMPRESSION: Possible recurrent hiatal hernia.
[2021-10-05 11:46] LABS: Appearance,Urine Turbid (Clear); Bacteria,Urine Occasional /hpf; Bilirubin,Urine Negative (Negative); Blood,Urine Large (Negative); Color,Urine Yellow; Glucose,Urine (UA) Negative (Negative); Ketones,Urine Negative (Negative); Leukocyte Esterase,Urine Large (Negative); Mucus,Urine Rare /hpf; Nitrite,Urine Positive (Negative); Protein,Urine 2+ (Negative); RBC,Urine >182 /hpf (0-5); Specific Gravity,Urine 1.024 (1.001-1.035); Squamous Epithelial Cell,Urine 11 /hpf (0-4); WBC,Urine >182 /hpf (0-5)
[2021-10-05] MEDS ORDERED: cefTRIAXone IN SWFI 1,000 MG/10 ML SYRINGE IVP STA (12:58)
[2021-10-05] MEDS ORDERED: MORPHINE SULFATE 4 MG/ML SYRINGE IVP STA (13:18)
[2021-10-05] MEDS: SODIUM CHLORIDE 0.9% 1,000 ML IV SCH (13:42)
--- NOTE | 2021-10-05 14:40 | CT ---
EXAMINATION TYPE: CT chest angio for PE DATE OF EXAM: 10/05/2021 COMPARISON: None HISTORY: SOB, Elev. Ddimer CT DLP: 440.8 mGycm Automated exposure control for dose reduction was used. CONTRAST: Performed with IV Contrast, patient injected with 69 mL of Isovue 370. Images obtained from the thoracic inlet to the diaphragm with IV contrast. There are Three-D postproc essed images. There is hiatal hernia. The lungs are clear of infiltrate. Heart size is normal. No pericardial effus ion. There is normal contrast opacification of the pulmonary arteries. No filling defect. There is no medi astinal adenopathy. There are no hilar masses. Thoracic aorta appears intact. No aneurysm or dissecti on. The thoracic spine is intact. No compression fracture. Sternum is intact. Upper abdominal soft tissue s are intact. IMPRESSION: No evidence of pulmonary embolism. Hiatal hernia.
[2021-10-05] MEDS ORDERED: ACETAMINOPHEN TAB 325 MG TAB PO STA ×2 (15:03→17:08)
[2021-10-05] MEDS ORDERED: CLINDAMYCIN 900 MG in DEXTROSE 5% IN WATER 50 ML IVPB STA ×2 (15:07)
[2021-10-05] MEDS ORDERED: ACETAMINOPHEN TAB 500 MG TAB PO STA (15:10)
[2021-10-05] MEDS ORDERED: GENTAMICIN PER PHARMACY MISCELLANE PRN (15:41)
[2021-10-05] MEDS ORDERED: NALOXONE 0.4 MG/ML 1 ML VIAL IV PRN (15:42)
[2021-10-05] MEDS ORDERED: GENTAMICIN 340 MG in SODIUM CHLORIDE 0.9% 100 ML IVPB ONE ×2 (15:45→22:45)
[2021-10-05] MEDS ORDERED: DILTIAZEM 5 MG/ML 5 ML VIAL IVP STA (16:19)
[2021-10-05] MEDS ORDERED: ADENOSINE 3 MG/ML 2 ML VIAL IVP STA ×3 (16:19)
[2021-10-05] MEDS: ACETAMINOPHEN TAB 325 MG TAB PO PRN (17:07)
[2021-10-05] MEDS ORDERED: SODIUM CHLORIDE 0.9% 500 ML 500 ML IV ONE (17:13)
--- NOTE | 2021-10-05 19:49 | HP ---
HISTORY AND PHYSICAL DATE OF SERVICE: 10/05/2021 CHIEF COMPLAINTS: Palpitations, fever and chills. HISTORY OF PRESENT ILLNESS: This 31-year-old woman with a past medical history of hypertension and gestational hypertension had a recent delivery on Thursday. This was the patient's second child and was uncomplicated, but subsequently the patient had rigors and chills and the patient had significant palpitations also. The patient came to [facility]. The patient also had apparent SVT and multiple doses of adenosine were given. Patient also was given antibiotics and heart rate is still elevated at 140. D-dimer was elevated, but CT angio showed no evidence of pulmonary embolism. Patient has mild hyponatremia and mild acute renal failure also. White count is elevated up to 20.7. UA shows multiple abnormalities suggestive of possible UTI. There is no history any headache, loss of consciousness or seizures. PAST MEDICAL HISTORY: History of gestational hypertension, GERD, recent delivery. MEDICATIONS: Home medications are reviewed and include multivitamins. ALLERGIES: NONE. FAMILY HISTORY: Hypertension. SOCIAL HISTORY: Previous history of smoking. REVIEW OF SYSTEMS: Fourteen-point review of systems negative except as mentioned earlier. PHYSICAL EXAMINATION: Pulse is 146, blood pressure 118/51, respiration 28. HEENT: Conjunctivae normal. Oral mucosa moist. NECK: No jugular venous distention. CARDIOVASCULAR: S1, S2 tachycardic. RESPIRATION: Breath sounds diminished at the bases. No rhonchi. No crackles. ABDOMEN: Soft. Mild diffuse distention. No mass palpable. No tenderness. No rigidity. No guarding. LEGS: No edema. No swelling. NERVOUS SYSTEM: No focal deficit. SKIN: No ulcer, rash, bleeding. JOINTS: No active deforming arthropathy. LABS: Reviewed. WBC 20.7. D-dimer is 3. ASSESSMENT: 1. Fever, chills; possible acute urinary tract infection with sepsis. Rule out endometritis. 2. Recent delivery. 3. Mild acute renal failure. 4. Gestational hypertension. 5. Increased white count. 6. Tachycardia; possibly supraventricular tachycardia versus sinus tachycardia. RECOMMENDATIONS AND DISCUSSION: In this 31-year-old woman who presented with multiple complex medical issues, we will monitor the patient closely. I recommend empiric IV antibiotics, infectious disease evaluation. Cardiology also will be consulted. I would also recommend cardiac workup, including 2D echo and troponins. FAST FOOD SERVER will also be consulted. Prognosis is guarded because of the multiple complex medical issues. Further recommendations to follow. A copy of this dictation is being forwarded to Dr. Robles, who is the primary physician. See orders for further details. DVT prophylaxis. MMODL / IJN: [id number] /
[2021-10-05] MEDS: PANTOPRAZOLE 40 MG/10 ML VIAL IVP SCH (21:57)
[2021-10-05] MEDS: HEPARIN SODIUM,PORCINE/PF 5,000 UNIT/0.5 ML SYRINGE SQ SCH (21:57)
[2021-10-05] MEDS: DILTIAZEM 125 MG in SODIUM CHLORIDE 0.9% 100 ML IV SCH (21:57)
[2021-10-06] MEDS ORDERED: GENTAMICIN TROUGH DUE 1 EACH MISC MISCELLANE ONE (09:00)
[2021-10-06] MEDS: SODIUM CHLORIDE 0.9% 1,000 ML IV SCH ×4 (09:04→21:04)
[2021-10-06] MEDS: ACETAMINOPHEN TAB 325 MG TAB PO PRN ×2 (09:09→17:41)
[2021-10-06] MEDS: PANTOPRAZOLE 40 MG/10 ML VIAL IVP SCH ×2 (09:09→21:04)
[2021-10-06 09:15] LABS: Albumin 2.8 g/dL (3.5-5.0); Calcium 7.9 mg/dL (8.4-10.2); Total Bilirubin 0.8 mg/dL (0.2-1.3); Total Protein 6.2 g/dL (6.3-8.2)
[2021-10-06 09:17] LABS: Basophils # (A) 0.1 k/uL (0-0.2); Basophils % (A) 0 %; Eosinophils # (A) 0.1 k/uL (0-0.7); Eosinophils % (A) 0 %; HCT 29.5 % (34.0-46.0); HGB 9.6 gm/dL (11.4-16.0); Hypochromasia Moderate; Lymphocytes # (A) 1.2 k/uL (1.0-4.8); Lymphocytes % (A) 7 %; MCHC 32.4 g/dL (31.0-37.0); MCV 80.4 fL (80.0-100.0); Mean Platelet Volume 7.9; Monocytes # (A) 0.3 k/uL (0-1.0); Monocytes % (A) 2 %; Neutrophils # (A) 14.9 k/uL (1.3-7.7); Neutrophils % (A) 90 %; Platelet Count 252 k/uL (150-450); RBC 3.68 m/uL (3.80-5.40); RDW 15.7 % (11.5-15.5); WBC 16.5 k/uL (3.8-10.6)
[2021-10-06 09:41] LABS: Potassium 4.4 mmol/L (3.5-5.1)
[2021-10-06] MEDS: DILTIAZEM 125 MG in SODIUM CHLORIDE 0.9% 100 ML IV SCH ×3 (09:45→21:08)
[2021-10-06] MEDS: CLINDAMYCIN 600 MG in DEXTROSE 5% IN WATER 50 ML IVPB SCH ×6 (09:45→23:35)
--- NOTE | 2021-10-06 12:56 | P.CRDCN ---
History of Present Illness Consult date: 10/06/21 Reason for Consult (text): SVT History of present illness: This is Papo Paulson NP, I'm dictating on behalf of Dr. Huang's H&P and A&P The patient was interviewed and examined. HPI: Patient is a pleasant 31-year-old female presents to the hospital status 5 days ago with complaints of shortness of breath and back pain. Patient states she's had shortness of breath and some chest pressure since yesterday. She reports family she can't catch her breath and states that her heart felt like it was beating out of her chest. Patient does report that she's had a fever since the day before, is initially tried taking Motrin for. Labs were completed and the patient was found to have an elevated d-dimer. Patient had a CT angiogram of the chest which was negative for pulmonary embolism. Patient was subsequently admitted for further evaluation of the shortness of breath and tachycardia. Patient has a past medical history that includes gestational hypertension. Patient has a past surgical history that includes hiatal hernia repair, cholecystectomy, and tubal ligation. Patient reports she's a former smoker, denies current alcohol and drug use. Patient was interviewed and examined while lying in the bed. Patient is visibly and rigors at this time. Nursing was requested to check patient's vital signs, stoma she has a temp of 101. Her heart rate is 160. Patient was initially started on Cardizem yesterday evening for elevated heart rate, recommended increasing Cardizem at this time. Likely patient's fever is secondary to infectious etiology, there is no specific arrhythmia noted. ROS: [Positive fever, chills, and rigors] [no cough, phlegm, or expectoration] [no nausea, vomiting, or diarrhea] [no hematuria, dysuria] [no musculoskelatal complaints] [no strokes or seizures] [no skin lesions] EXAMINATION: GENERAL: Patient is currently experiencing rigors, well-nourished and in no acute distress. NECK: Supple without JVD or thyromegaly. LUNGS: Breath sounds clear to auscultation bilaterally. Respiration equal and unlabored. No wheezes, rales or rhonchi. HEART: Accelerated rate and regular rhythm without murmurs, rubs or gallops. S1 and S2 heard. EXTREMITIES: Normal range of motion, no edema. No clubbing or cyanosis. Peripheral pulses intact and strong. REVIEW OF LABS, ECG & MEDICAL DATA: LABS: White count 16.5, hemoglobin 9.6, platelets 252, d-dimer 3.00, sodium 138, potassium 4.4, B1 18, creatinine 1.44, troponin less than 0.012 EKG: SVT with rate 150-160 IMAGING: KUB x-ray dated 10/05/2021 states correlate for appropriate surgical history, possible recurrent hiatal hernia. Chest x-ray dated 10/05/2021 shows possible recurrent hiatal hernia. CT angiogram of the chest dated 10/05/2021 demonstrates no evidence of pulmonary embolism. Hiatal hernia. VITALS: Temp 101.1, pulse 146, blood pressure 135/78, O2 saturation 99% on 2 L via nasal cannula IMPRESSION/PLAN: 1. Sinus tachycardia/supraventricular tachycardia-likely secondary to elevated temperature. Recommend medical management of infectious process, including antipyretics. May continue Cardizem drip, however if the tachycardia is secondary to infectious process with fever, this will likely not help. We'll order an echocardiogram for tomorrow. 2. Shortness of breath-likely secondary to accelerated heart rate. R ecommendations as above. 3. Status day 5-recommend PLANNING MANAGER consult. Further recommendations based on the patient's clinical course. Thank you for the consult and allowing us to participate in the care of this patient. Past Medical History Past Medical History: GERD/Reflux, Hypertension Additional Past Medical History / Comment(s): Gestational hypertension History of Any Multi-Drug Resistant Organisms: None Reported Past Surgical History: Tubal Ligation Additional Past Surgical History / Comment(s): Hiatal hernia surgery, gallbladde r removal, tubes placed in ears NORMAL CHILDBIRTH 4 DAYS POST Past Anesthesia/Blood Transfusion Reactions: No Reported Reaction Past Psychological History: No Psychological Hx Reported Additional Psychological History / Comment(s): TAKES NO MEDS Smoking Status: Former smoker Past Alcohol Use History: None Reported Additional Past Alcohol Use History / Comment(s): quit smoking Jul 2017,smoked approx 6 yrs on and off Past Drug Use History: None Reported Additional Drug Use History / Comment(s): uses marijuana socially, instructed to hold 24 hrs prior to procedure - Past Family History Mother Family Medical History: Hypertension Medications and Allergies Home Medications Medication Instructions Recorded Confirmed Type Omeprazole 20 mg PO BID 12/28/20 10/05/21 History Pnv No.154/Iron Fum/Folic Acid 1 tab PO DAILY 09/23/21 10/05/21 History [ Plus Vitamin Tablet] Ibuprofen [Motrin] 600 mg PO Q6HR PRN #30 tab 10/03/21 10/05/21 Rx Allergies Allergy/AdvReac Type Severity Reaction Status Date / Time No Known Allergies Allergy Verified 10/05/21 13:29 Physical Exam Vitals: Vital Signs Temp Pulse Pulse Pulse Resp BP BP 10/06/21 08:00 101.1 F H 146 H 146 H 16 135/78 10/06/21 04:00 97.5 F L 92 16 100/69 10/06/21 02:00 125 H 107 H 16 10/06/21 00:00 97.9 F 107 H 16 96/64 10/05/21 20:00 98.2 F 125 H 125 H 16 94/55 10/05/21 19:34 98.2 F 125 H 16 94/55 10/05/21 18:36 131 H 20 111/61 10/05/21 18:22 98.8 F 10/05/21 17:14 101.4 F H 10/05/21 16:53 146 H 20 118/51 10/05/21 16:21 152 H 20 119/64 10/05/21 16:04 170 H 20 136/70 10/05/21 16:03 143/65 10/05/21 16:02 102.8 F H 10/05/21 15:17 186 H 24 153/104 10/05/21 15:05 103.2 F H Pulse Ox 10/06/21 08:00 99 10/06/21 04:00 96 10/06/21 02:00 10/06/21 00:00 96 10/05/21 20:00 96 10/05/21 19:34 96 10/05/21 18:36 94 L 10/05/21 18:22 10/05/21 17:14 10/05/21 16:53 95 10/05/21 16:21 95 10/05/21 16:04 95 10/05/21 16:03 10/05/21 16:02 10/05/21 15:17 99 10/05/21 15:05 Intake and Output 10/05/21 10/06/21 10/06/21 22:59 06:59 14:59 Intake Total 559 Balance 559 Intake: Intake, IV Titration 559 Amount Diltiazem 125 mg In 59 Sodium Chloride 0.9% 100 ml @ 10 MG/HR 10 mls/hr IV .[id number] [facility] Rx#: [id number] Sodium Chloride 0.9% 1, 500 000 ml @ 130 mls/hr IV . Q7H42M [facility] Rx#:[id number] Other: # Voids 1 1 Weight 92.986 kg Results 10/06/21 08:41 10/06/21 08:41 Cardiac Enzymes 10/06/21 Range/Units 08:41 AST 38 H (14-36) U/L CBC 10/06/21 Range/Units 08:41 WBC 16.5 H (3.8-10.6) k/uL RBC 3.68 L (3.80-5.40) m/uL Hgb 9.6 L (11.4-16.0) gm/dL Hct 29.5 L (34.0-46.0) % Plt Count 252 (150-450) k/uL Comprehensive Metabolic Panel 10/06/21 Range/Units 08:41 Sodium 138 (137-145) mmol/L Potassium 4.4 (3.5-5.1) mmol/L Chloride 112 H (98-107) mmol/L Carbon Dioxide 15 L (22-30) mmol/L BUN 18 H (7-17) mg/dL Creatinine 1.44 H (0.52-1.04) mg/dL Glucose 99 (74-99) mg/dL Calcium 7.9 L (8.4-10.2) mg/dL AST 38 H (14-36) U/L ALT 17 (4-34) U/L Alkaline Phosphatase 153 H (38-126) U/L Total Protein 6.2 L (6.3-8.2) g/dL Albumin 2.8 L (3.5-5.0) g/dL Current Medications Generic Name Dose Route Start Last Admin Trade Name Freq PRN Reason Stop Dose Admin Acetaminophen 650 mg 10/05/21 15:42 10/06/21 09:09 Acetaminophen Tab 325 Mg Tab PO 650 mg Q6HR PRN Administration Mild Pain or Fever > 100.5 Heparin Sodium (Porcine) 5,000 unit 10/05/21 21:00 10/05/21 21:57 Heparin Sodium,Porcine/Pf 5,000 Unit/0.5 Ml Syringe SQ 5,000 unit Q12HR NAYELI Administration Sodium Chloride 1,000 mls @ 130 mls/hr 10/05/21 13:00 10/06/21 09:14 Saline 0.9% IV Not Given .Q7H42M NAYELI Diltiazem HCl 125 mg/ Sodium 125 mls @ 10 mls/hr 10/05/21 16:30 10/06/21 09:45 Chloride IV 10 mg/hr .[id number] NAYELI 10 mls/hr Administration 10 MG/HR Clindamycin Phosphate 600 mg/ 54 mls @ 50 mls/hr 10/06/21 08:30 10/06/21 09:45 Dextrose/Water IVPB 50 mls/hr Q8HR NAYELI Administration Protocol Ceftriaxone Sodium 2 gm/ 50 mls @ 100 mls/hr 10/06/21 13:00 Sodium Chloride IVPB Q24HR NAYELI Protocol Ibuprofen 400 mg 10/05/21 15:42 Ibuprofen 400 Mg Tab PO Q6HR PRN Mild Pain or Fever > 100.5 Naloxone HCl 0.2 mg 10/05/21 15:42 Naloxone 0.4 Mg/Ml 1 Ml Vial IV Q2M PRN Opioid Reversal Pantoprazole Sodium 40 mg 10/05/21 21:00 10/06/21 09:09 Pantoprazole 40 Mg/10 Ml Vial IVP 40 mg BID NAYELI Administration Intake and Output 10/05/21 10/06/21 10/06/21 22:59 06:59 14:59 Intake Total 559 Balance 559 Intake: Intake, IV Titration 559 Amount Diltiazem 125 mg In 59 Sodium Chloride 0.9% 100 ml @ 10 MG/HR 10 mls/hr IV .[id number] [facility] Rx#: [id number] Sodium Chloride 0.9% 1, 500 000 ml @ 130 mls/hr IV . Q7H42M [facility] Rx#:[id number] Other: # Voids 1 1 Weight 92.986 kg 10/06/21 08:41 10/06/21 08:41
[2021-10-06] MEDS: IBUPROFEN 400 MG TAB PO PRN (12:58)
--- NOTE | 2021-10-06 13:37 | P.OBCN ---
History of Present Illness Consult date: 10/06/21 Requesting physician: Donnell Singh Reason for consult: other ( infection) Chief complaint: Shortness of breath, back pain, fever History of present illness: This is a 31-year-old female 2 para 2 who delivered vaginally on 10/01/[address] Power. She was induced for gestational hypertension but preeclampsia workup was negative. She was initially placed back on labetalol 100 mg twice a day after delivery but stopped it due to normal blood pressures. She began having a low-grade fever approximately 2 days ago and came into the hospital yesterday with complaints of shortness of breath and some left low back pain. She denied any abdominal pain, increased bleeding, or difficulty with urination or bowel movements. She did complain of some left flank and left low er back pain. She does have a history of kidney stones and at first thought it may feel similar but does not think so at this time. Upon arrival to the emergency room she was diagnosed with SVT and is currently admitted for treatment of this. Her urinalysis was positive for probable UTI however this was not a straight cath urine. Urine culture is pending at this time. Patient states when she gets chilled she starts to have more of the shortness of breath. . History of 2 vaginal deliveries. Review of Systems Constitutional: Reports chills, Reports fever Eyes: denies blurred vision Ears, nose, mouth and throat: Denies headache, Denies sore throat Cardiovascular: Reports lightheadedness, Reports rapid heart beat, Reports shortness of breath Gastrointestinal: Reports nausea, Reports vomiting, Denies abdominal pain Genitourinary: Reports flank pain (Left), Denies abnormal vaginal bleeding, Denies pelvic pain Past Medical History Past Medical History: GERD/Reflux, Hypertension Additional Past Medical History / Comment(s): Gestational hypertension History of Any Multi-Drug Resistant Organisms: None Reported Additional Past Surgical History / Comment(s): Hiatal hernia surgery, gallbladder removal, tubes placed in ears NORMAL CHILDBIRTH 4 DAYS POST Past Anesthesia/Blood Transfusion Reactions: No Reported Reaction Past Psychological History: No Psychological Hx Reported Additional Psychological History / Comment(s): TAKES NO MEDS Smoking Status: Former smoker Past Alcohol Use History: None Reported Additional Past Alcohol Use History / Comment(s): quit smoking Jul 2017,smoked approx 6 yrs on and off Past Drug Use History: None Reported Additional Drug Use History / Comment(s): uses marijuana socially, instructed to hold 24 hrs prior to procedure - Past Family History Mother Family Medical History: Hypertension Medications and Allergies Home Medications Medication Instructions Recorded Confirmed Type Omeprazole 20 mg PO BID 12/28/20 10/05/21 History Pnv No.154/Iron Fum/Folic Acid 1 tab PO DAILY 09/23/21 10/05/21 History [ Plus Vitamin Tablet] Ibuprofen [Motrin] 600 mg PO Q6HR PRN #30 tab 10/03/21 10/05/21 Rx Allergies Allergy/AdvReac Type Severity Reaction Status Date / Time No Known Allergies Allergy Verified 10/05/21 13:29 Exam Osteopathic Statement: *. No significant issues noted on an osteopathic structural exam other than those noted in the History and Physical/Consult. Vital Signs Temp Pulse Pulse Pulse Resp BP BP 10/06/21 08:00 101.1 F H 146 H 146 H 16 135/78 10/06/21 04:00 97.5 F L 92 16 100/69 10/06/21 02:00 125 H 107 H 16 10/06/21 00:00 97.9 F 107 H 16 96/64 10/05/21 20:00 98.2 F 125 H 125 H 16 94/55 10/05/21 19:34 98.2 F 125 H 16 94/55 10/05/21 18:36 131 H 20 111/61 10/05/21 18:22 98.8 F 10/05/21 17:14 101.4 F H 10/05/21 16:53 146 H 20 118/51 10/05/21 16:21 152 H 20 119/64 10/05/21 16:04 170 H 20 136/70 10/05/21 16:03 143/65 10/05/21 16:02 102.8 F H 10/05/21 15:17 186 H 24 153/104 10/05/21 15:05 103.2 F H Pulse Ox 10/06/21 08:00 99 10/06/21 04:00 96 10/06/21 02:00 10/06/21 00:00 96 10/05/21 20:00 96 10/05/21 19:34 96 10/05/21 18:36 94 L 10/05/21 18:22 10/05/21 17:14 10/05/21 16:53 95 10/05/21 16:21 95 10/05/21 16:04 95 10/05/21 16:03 10/05/21 16:02 10/05/21 15:17 99 10/05/21 15:05 Intake and Output 10/05/21 10/06/21 10/06/21 22:59 06:59 14:59 Intake Total 559 Balance 559 Intake: Intake, IV Titration 559 Amount Diltiazem 125 mg In 59 Sodium Chloride 0.9% 100 ml @ 10 MG/HR 10 mls/hr IV .[id number] [facility] Rx#: [id number] Sodium Chloride 0.9% 1, 500 000 ml @ 130 mls/hr IV . Q7H42M [facility] Rx#:[id number] Other: # Voids 1 1 Weight 92.986 kg Gen.: Well-developed well-nourished female in no acute distress, slightly diaphoretic Heart: Slightly tachycardic rate Lungs: Clear to auscultation bilaterally Abdomen: Soft, nontender, fundus is nontender Back: Mild left flank tenderness with no guarding or rebound Extremities: Negative Homans Results Result Diagrams: 10/06/21 08:41 10/06/21 08:41 Abnormal Lab Results - Last 24 Hours (Table) 10/06/21 10/06/21 Range/Units 08:41 08:41 WBC 16.5 H (3.8-10.6) k/uL RBC 3.68 L (3.80-5.40) m/uL Hgb 9.6 L (11.4-16.0) gm/dL Hct 29.5 L (34.0-46.0) % RDW 15.7 H (11.5-15.5) % Neutrophils # 14.9 H (1.3-7.7) k/uL Chloride 112 H (98-107) mmol/L Carbon Dioxide 15 L (22-30) mmol/L BUN 18 H (7-17) mg/dL Creatinine 1.44 H (0.52-1.04) mg/dL Calcium 7.9 L (8.4-10.2) mg/dL AST 38 H (14-36) U/L Alkaline Phosphatase 153 H (38-126) U/L Total Protein 6.2 L (6.3-8.2) g/dL Albumin 2.8 L (3.5-5.0) g/dL Microbiology - Last 24 Hours (Table) 10/05/21 10:37 Urine Culture - Preliminary Urine,Voided Chest x-ray: report reviewed CT scan - chest: report reviewed Assessment and Plan (1) Infection of urinary tract following delivery, Current Visit: Yes Status: Acute Code(s): O86.20 - URINARY TRACT INFECTION FOLLOWING DELIVERY, UNSPECIFIED SNOMED Code(s): 803226582 (2) Supraventricular tachycardia Current Visit: Yes Status: Acute Code(s): I47.1 - SUPRAVENTRICULAR TACHYCARDIA SNOMED Code(s): 9706436 Plan: Continue with clindamycin and gentamicin for presumptive treatment of urinary tract infection versus endometritis. Will defer to cardiology for treatment of SVT. Ibuprofen or Tylenol if needed for pain. Continue with DVT [id number] heparin is okay. Will follow.
[2021-10-06] MEDS: IOPAMIDOL CONTRAST (ORAL USE) VIAL PO PRN ×2 (14:05→14:10)
[2021-10-06] MEDS: HEPARIN SODIUM,PORCINE/PF 5,000 UNIT/0.5 ML SYRINGE SQ SCH ×2 (14:49→21:04)
--- NOTE | 2021-10-06 18:35 | PN ---
PROGRESS NOTE DATE OF SERVICE: 10/06/2021 This 31-year-old woman who was admitted with fever, chills, possible urinary tract infection and sepsis also had tachycardia. Possibly the patient had supraventricular tachycardia. The patient was started on Cardizem drip. Cardiology is following the patient closely. The tachycardia is also related to elevated temperature. Motrin is being added to the current regimen. The cultures are negative so far except Gram- negative bacilli in the urine. Multiple consultants are following the patient closely. Past medical history reviewed. REVIEW OF SYSTEMS: Fourteen-point review of systems negative except as mentioned earlier. CURRENT MEDICATIONS: Reviewed. They include Tylenol, ceftriaxone 2 grams. Doses and other medications are reviewed. PHYSICAL EXAMINATION: Pulse is 146, regular. Blood pressure 130/78, respiration 18, temperature is 101.1, pulse ox 99% on 2 L. HEENT: Conjunctivae normal. NECK: No jugular venous distention. CARDIOVASCULAR: S1, S2 muffled. RESPIRATION: Breath sounds diminished at the bases. A few scattered rhonchi and crackles. ABDOMEN: Soft, non-tender. No mass palpable. LEGS: No edema. No swelling. NERVOUS SYSTEM: No focal deficit. LABS: Creatinine 1.44. Other labs are noted. ASSESSMENT: 1. Acute urinary tract infection with sepsis with fever. 2. Recent delivery. 3. Possible sinus tachycardia versus supraventricular tachycardia, on Cardizem. 4. Mild acute renal failure. 5. Gestational hypertension. 6. Increased white count. RECOMMENDATIONS AND DISCUSSION: I recommend to continue current medications, continue symptomatic treatment. Continue the broad-spectrum IV antibiotics. Obtain final ID of the cultures. Repeat labs. Otherwise, closely follow with multiple consultants. Prognosis guarded. Further recommendations to follow. See orders for further details. Discussed with the patient at length. DVT prophylaxis. MMODL / IJN: [id number] /
--- NOTE | 2021-10-06 21:54 | CT ---
EXAMINATION TYPE: CT abdomen pelvis wo con DATE OF EXAM: 10/06/2021 COMPARISON: None HISTORY: Fever, abdominal pain, worse on left and recent vaginal delivery. CT DLP: 947 mGycm Automated exposure control for dose reduction was used. Images obtained from the diaphragm to the floor the pelvis with oral contrast only. Lung bases are clear. There is moderate size hiatal hernia. There are surgical clips at the gastroeso phageal junction. There are clips from cholecystectomy. Liver is intact. Spleen is intact. There is n o pancreatic mass. There is no adrenal mass. There is some contrast in the kidneys from CT scan yesterday. There is no adrenal mass. There is left-sided hydronephrosis and hydroureter. There is a 5 mm obstruc ting calculus at the left ureterovesical junction. Left kidney is enlarged. Right kidney shows normal size with no sign of obstruction. There is no retroperitoneal adenopathy. There is enlarged uterus f rom recent . No pelvic mass. No free fluid in the pelvis. No inguinal hernia. There is some contrast within the appendix which appears normal. There is no mesenteric edema. No asc ites or free air. No bowel obstruction. The lumbar vertebra have normal spacing and alignment. Posterior elements are intact. No compression fracture. The bony pelvis is intact. IMPRESSION: There is left-sided hydronephrosis and hydroureter with obstructing calculus at the left ureterovesic al junction. Normal appendix.
[2021-10-07] MEDS ORDERED: GENTAMICIN 340 MG in SODIUM CHLORIDE 0.9% 100 ML IVPB SCH ×2
--- NOTE | 2021-10-07 00:20 | P.CONS ---
History of Present Illness - Reason for Consult Consult date: 10/06/21 Sepsis Requesting physician: Ned Monte - Chief Complaint Shortness of breath x few days - History of Present Illness Patient is a 31-year-old female who is status post vaginal delivery on 10/01/2021, patient subsequent discharged home on 10/03/2021, patient mention she was not feeling that good for the last few days and has been complaining of pain to the lower back area describing to be more of a dull aching 4-5 out of 10 head no radiation patient also having increasing shortness of breath but no chest pain or any cough no nausea no vomiting no diarrhea no significant burning or frequency of urine and denies having any worsening vaginal drainage with the symptoms the patient presented to hospital on arrival to the ER patient initially was afebrile subsequently she did spike a fever of 103.2 F, patient was tachycardic and did have white count of 20,000 creatinine was mildly elevated did have a positive UA with large leukocyte esterase more than 22 WBC patient did have a chest x-ray followed by CT angiogram of the chest that was negative for any PE and did not show any pneumonia patient currently being treated with gentamicin and clindamycin infectious disease was consulted for further management of antibiotic therapy Review of Systems Positive point has been mentioned in the HPI rest of the systems are negative Past Medical History Past Medical History: GERD/Reflux, Hypertension Additional Past Medical History / Comment(s): Gestational hypertension History of Any Multi-Drug Resistant Organisms: None Reported Past Surgical History: Tubal Ligation Additional Past Surgical History / Comment(s): Hiatal hernia surgery, gallbladder removal, tubes placed in ears NORMAL CHILDBIRTH 4 DAYS POST Past Anesthesia/Blood Transfusion Reactions: No Reported Reaction Past Psychological History: No Psychological Hx Reported Additional Psychological History / Comment(s): TAKES NO MEDS Smoking Status: Former smoker Past Alcohol Use History: None Reported Additional Past Alcohol Use History / Comment(s): quit smoking Jul 2017,smoked approx 6 yrs on and off Past Drug Use History: None Reported Additional Drug Use History / Comment(s): uses marijuana socially, instructed to hold 24 hrs prior to procedure - Past Family History Mother Family Medical History: Hypertension Medications and Allergies Home Medications Medication Instructions Recorded Confirmed Type Omeprazole 20 mg PO BID 12/28/20 10/05/21 History Pnv No.154/Iron Fum/Folic Acid 1 tab PO DAILY 09/23/21 10/05/21 History [ Plus Vitamin Tablet] Ibuprofen [Motrin] 600 mg PO Q6HR PRN #30 tab 10/03/21 10/05/21 Rx Allergies Allergy/AdvReac Type Severity Reaction Status Date / Time No Known Allergies Allergy Verified 10/05/21 13:29 Physical Exam Vitals: Vital Signs Temp Pulse Pulse Pulse Resp BP BP 10/06/21 08:00 101.1 F H 146 H 146 H 16 135/78 10/06/21 04:00 97.5 F L 92 16 100/69 10/06/21 02:00 125 H 107 H 16 10/06/21 00:00 97.9 F 107 H 16 96/64 10/05/21 20:00 98.2 F 125 H 125 H 16 94/55 10/05/21 19:34 98.2 F 125 H 16 94/55 10/05/21 18:36 131 H 20 111/61 10/05/21 18:22 98.8 F 10/05/21 17:14 101.4 F H 10/05/21 16:53 146 H 20 118/51 10/05/21 16:21 152 H 20 119/64 10/05/21 16:04 170 H 20 136/70 10/05/21 16:03 143/65 10/05/21 16:02 102.8 F H 10/05/21 15:17 186 H 24 153/104 10/05/21 15:05 103.2 F H Pulse Ox 10/06/21 08:00 99 10/06/21 04:00 96 10/06/21 02:00 10/06/21 00:00 96 10/05/21 20:00 96 10/05/21 19:34 96 10/05/21 18:36 94 L 10/05/21 18:22 10/05/21 17:14 10/05/21 16:53 95 10/05/21 16:21 95 10/05/21 16:04 95 10/05/21 16:03 10/05/21 16:02 10/05/21 15:17 99 10/05/21 15:05 Intake and Output 10/05/21 10/06/21 10/06/21 22:59 06:59 14:59 Intake Total 559 Balance 559 Intake: Intake, IV Titration 559 Amount Diltiazem 125 mg In 59 Sodium Chloride 0.9% 100 ml @ 10 MG/HR 10 mls/hr IV .[id number] [facility] Rx#: [id number] Sodium Chloride 0.9% 1, 500 000 ml @ 130 mls/hr IV . Q7H42M [facility] Rx#:[id number] Other: # Voids 1 1 Weight 92.986 kg GENERAL DESCRIPTION: Middle-aged female lying in bed, no distress. No tachypnea or accessory muscle of respiration use. HEENT: Shows Pallor , no scleral icterus. Oral mucous membrane is dry. No phar yngeal erythema or thrush NECK: Trachea central, no thyromegaly. LUNGS: Unlabored breathing. Clear to auscultation anteriorly. No wheeze or crackle. HEART: S1, S2, regular rate and rhythm. No loud murmur ABDOMEN: Soft, no tenderness , guarding or rigidity, no organomegaly EXTREMITIES: No edema of feet. SKIN: No rash, no masses palpable. NEUROLOGICAL: The patient is awake, alert, oriented x3, mood and affect normal. Results CBC & Chem 7: 10/06/21 08:41 10/06/21 08:41 Labs: Abnormal Lab Results - Last 24 Hours (Table) 10/05/21 10/06/21 10/06/21 Range/Units 11:51 08:41 08:41 WBC 16.5 H (3.8-10.6) k/uL RBC 3.68 L (3.80-5.40) m/uL Hgb 9.6 L (11.4-16.0) gm/dL Hct 29.5 L (34.0-46.0) % RDW 15.7 H (11.5-15.5) % Neutrophils # 14.9 H (1.3-7.7) k/uL D-Dimer 3.00 H (<0.60) mg/L FEU Chloride 112 H (98-107) mmol/L Carbon Dioxide 15 L (22-30) mmol/L BUN 18 H (7-17) mg/dL Creatinine 1.44 H (0.52-1.04) mg/dL Calcium 7.9 L (8.4-10.2) mg/dL AST 38 H (14-36) U/L Alkaline Phosphatase 153 H (38-126) U/L Total Protein 6.2 L (6.3-8.2) g/dL Albumin 2.8 L (3.5-5.0) g/dL Microbiology - Last 24 Hours (Table) 10/05/21 10:37 Urine Culture - Preliminary Urine,Voided Assessment and Plan (1) Sepsis Current Visit: Yes Status: Acute Code(s): A41.9 - SEPSIS, UNSPECIFIED ORGAN ISM SNOMED Code(s): 57951532 Plan: 1patient presented to hospital with sepsis in this patient did have fever elevated white count tachycardia and this patient has been complaining of lower back pain and recently did have a vaginal delivery patient did have significantly positive UA but no significant symptom with a differential of pyelonephritis versus endometritis and will need to cover for the gram-negative with a likely pathogen. 2patient with a borderline kidney function high risk of nephrotoxicity from gentamicin. 3we will obtain a CT of abdominal pelvis with oral contrast only to rule out any pyelonephritis versus endometritis. 4discontinue gentamicin and start patient on Rocephin to cover for the gram- negative. We will follow on clinical condition and cultures to further adjust medication if needed Thank you for this consultation will follow this patient along with you
[2021-10-07] MEDS: IBUPROFEN 400 MG TAB PO PRN ×2 (03:15→12:14)
[2021-10-07] MEDS ORDERED: CEFEPIME 2 GM in SODIUM CHLORIDE 0.9% 100 ML IVPB SCH (08:00)
[2021-10-07 08:34] LABS: Basophils % (A) 0 %; Eosinophils # (A) 0.1 k/uL (0-0.7); Eosinophils % (A) 0 %; HCT 23.1 % (34.0-46.0); Hypochromasia Marked; Lymphocytes # (A) 1.7 k/uL (1.0-4.8); Lymphocytes % (A) 11 %; MCH 25.4 pg (25.0-35.0); MCV 81.8 fL (80.0-100.0); Mean Platelet Volume 7.8; Monocytes # (A) 0.6 k/uL (0-1.0); Monocytes % (A) 4 %; Neutrophils # (A) 12.7 k/uL (1.3-7.7); Neutrophils % (A) 83 %; Platelet Count 280 k/uL (150-450); RBC 2.82 m/uL (3.80-5.40); RDW 15.8 % (11.5-15.5); WBC 15.4 k/uL (3.8-10.6)
[2021-10-07 08:41] LABS: HGB 7.2 gm/dL (11.4-16.0)
[2021-10-07 08:45] LABS: Albumin 2.2 g/dL (3.5-5.0); Calcium 7.7 mg/dL (8.4-10.2); Potassium 3.7 mmol/L (3.5-5.1); Total Bilirubin 0.3 mg/dL (0.2-1.3)
--- NOTE | 2021-10-07 09:40 | PN ---
PROGRESS NOTE This is a 31-year-old lady who was admitted to hospital with an episode of SVT. She was treated with intravenous Cardizem and subsequently converted to sinus rhythm. At the time of my evaluation this morning, patient is stable hemodynamically. Heart rate is around 90 to 100 beats per minute. Her vital signs are stable. Chest exam reveals good air entry bilaterally. Heart exam reveals first and second heart sounds. No gallop. Examination of extremities did not reveal any edema. We do not have any labs. Patient has been diagnosed with urinary stone with UTI and sepsis. ASSESSMENT AND PLAN: Paroxysmal supraventricular tachycardia. Patient is currently in sinus rhythm. I will start the patient on Toprol-XL 25 mg daily. We are dictating on this patient at a time when [employer] is not working. We have inadequate and incomplete access to patient's information. We are doing the best we can at this time. The note may be incomplete and may be inaccurate. MMRONEYL / IJN: [id number] /
[2021-10-07] MEDS: SODIUM CHLORIDE 0.9% 1,000 ML IV SCH ×3 (12:11→18:08)
[2021-10-07] MEDS: PANTOPRAZOLE 40 MG/10 ML VIAL IVP SCH ×2 (12:12→20:24)
[2021-10-07] MEDS: HEPARIN SODIUM,PORCINE/PF 5,000 UNIT/0.5 ML SYRINGE SQ SCH ×2 (12:12→20:24)
--- NOTE | 2021-10-07 12:44 | P.PN ---
Progress Note - Text Progress Note Date: 10/07/21 I did see Yisel earlier this morning when the [employer] system was down. Please see Dr. Dempsey's dictated consult. Patient repeat presented to the hospital with complaints of fast heart rate and not feeling well and had an episode of SVT. Patient also is having left flank pain. Evaluation thus far has shown a left renal calculus and hydronephrosis with E. coli on urine culture. Patient's clinical situation is consistent with pyelonephritis. Patient had an uncomplicated vaginal delivery and no evidence of endometritis. Of note she is anemic but she was chronically anemic and postdelivery hemoglobin was appropriate. I will continue to follow with you.
[2021-10-07] MEDS: METOPROLOL SUCCINATE (ER) 25 MG TAB.ER.24H PO SCH (12:47)
--- NOTE | 2021-10-07 13:24 | P.PN ---
Subjective Progress Note Date: 10/07/21 This is a 31-year-old female, recent vaginal delivery on October 01 admitted with acute UTI with sepsis, SVT, acute renal failure and multiple other medical issues. CT of abdomen and pelvis reported left-sided hydronephrosis and hydroureter with obstructing calculus at the left ureterovesical junction. Evaluated by urology and patient is scheduled for cystoscopy today. Continues on antibiotics of Rocephin as per infectious disease. Urine culture reporting E. coli, preliminary blood cultures reporting no growth after 24 hours. Afebrile, T-max 101.1. SVT resolved, Cardizem drip discontinued. Maintained on gentle IV fluid hydration. Labs pending. Denies chest pain, palpitations or shortness of breath. Objective - Vital Signs Vital signs: Vital Signs Temp 96.6 F L 10/07/21 09:00 Pulse 102 H 10/07/21 09:00 Resp 16 10/07/21 09:00 BP 124/87 10/07/21 09:00 Pulse Ox 97 10/07/21 09:00 Intake & Output 10/06/21 10/07/21 10/07/21 18:59 06:59 18:59 Intake Total 878.5 34.333 Balance 878.5 34.333 Intake: Intake, IV Titration 638.5 34.333 Amount Diltiazem 125 mg In 138.5 34.333 Sodium Chloride 0.9% 100 ml @ 10 MG/HR 10 mls/hr IV .[id number] [facility] Rx#: [id number] Sodium Chloride 0.9% 1, 500 000 ml @ 130 mls/hr IV . Q7H42M [facility] Rx#:[id number] Oral 240 Other: Voiding Method Toilet Toilet # Voids 1 2 # Bowel Movements 0 - Exam PHYSICAL EXAM: VITAL SIGNS: As above GENERAL: Sitting up in bed, no acute distress HEENT: Conjunctivae normal. eyes normal. NECK: No JVD. No thyroid enlargement. No LNs CARDIOVASCULAR: S1, S2 regular. No murmur RESPIRATION: Breath sounds diminished in the bases. No rhonchi or crackles. No bronchial breathing. ABDOMEN: Soft, nontender . No guarding. no masses palpable. Positive Bowel sounds heard. LEGS: No edema. no swelling PSYCHIATRY: Alert and oriented X3, mood and affect normal. NERVOUS SYSTEM: Cranial N 2-12 grossly normal. Moves all 4 limbs. No focal deficits. Strength and sensation grossly intact. Skin: Warm and dry, no rash Microbiology 10/05/21 10:37 Urine,Voided Urine Culture - Final Escherichia coli 10/05/21 19:08 Blood Blood Culture - Preliminary No Growth after 24 hours - Labs CBC & Chem 7: 10/07/21 06:11 10/07/21 06:11 Labs: Abnormal Lab Results - Last 24 Hours (Table) 10/07/21 10/07/21 Range/Units 06:11 06:11 WBC 15.4 H (3.8-10.6) k/uL RBC 2.82 L (3.80-5.40) m/uL Hgb 7.2 L D (11.4-16.0) gm/dL Hct 23.1 L (34.0-46.0) % RDW 15.8 H (11.5-15.5) % Neutrophils # 12.7 H (1.3-7.7) k/uL Chloride 115 H (98-107) mmol/L Carbon Dioxide 16 L (22-30) mmol/L BUN 22 H (7-17) mg/dL Creatinine 1.27 H (0.52-1.04) mg/dL Calcium 7.7 L (8.4-10.2) mg/dL Total Protein 5.0 L (6.3-8.2) g/dL Albumin 2.2 L (3.5-5.0) g/dL Microbiology - Last 24 Hours (Table) 10/05/21 10:37 Urine Culture - Final Urine,Voided Escherichia coli 10/05/21 19:08 Blood Culture - Preliminary Blood No Growth after 24 hours Assessment and Plan Assessment: Sepsis secondary to Acute UTI with E. coli, related to obstructing renal calculus, Acute renal failure secondary to the above and left-sided hydronephrosis and hydroureter with obstructing calculus at the left ureterovesical junction. Sinus tachycardia, paroxysmal SVT on a patient with fevers, status post Cardizem drip. Echo pending Plan: Continue on current medication regime ,monitoring and symptomatic tr eatment. Labs pending. Maintained on gentle IV fluid hydration. Evaluated by urology, scheduled for cystoscopy today. SVT resolved, Cardizem drip discontinued, beta leonard initiated. Antibiotics as per infectious disease. The impression and plan of care has been dictated as directed. : I performed a history and examination of this patient, discussed the same with the dictator. I agree with the dictator's note ,documented as a scribe. Any additional findings or plans will be noted.
--- NOTE | 2021-10-07 13:25 | XR ---
EXAMINATION TYPE: XR chest 1V portable DATE OF EXAM: 10/07/2021 COMPARISON: 10/05/2021 HISTORY: Chest pain TECHNIQUE: Single frontal view of the chest is obtained. FINDINGS: There is no focal air space opacity, pleural effusion, or pneumothorax seen. Pulmonary venous congest ion without overt failure. The cardiac silhouette size is within normal limits. The osseous structures are intact. IMPRESSION: 1. Pulmonary venous congestion without overt failure.
[2021-10-07] MEDS ORDERED: Potassium Replacement Protocol 1 EACH MISC MISCELLANE PRN (13:26)
--- NOTE | 2021-10-07 13:34 | P.GSCN ---
History of Present Illness Consult date: 10/07/21 Reason for Consult: Left hydronephrosis and ureteral stone History of present illness: This is a 31 yo female with hx of 5mm left ureteral stone causing sepsis. Patient was febrile at 103 and tachycardic [address] showed 5 mm left-sided ureteral stone with hydronephrosis. Indicates had a previous history of stone which he passed spontaneously. At this time her fever has resolved, but still having flank pain. Denies any dysuria or gross hematuria. denies any nausea or vomiting at this time. Indicates that the pain is persistent in flank, but is not radiating anywhere. Review of Systems - Constitutional Reports chills, Reports fever, Denies weight loss - Cardiovascular Denies chest pain, Denies shortness of breath - Respiratory Denies cough, Denies 7 - Gastrointestinal Reports as per HPI - Genitourinary Genitourinary: Reports flank pain, Denies dysuria, Denies hematuria - Integumentary Denies rash, Denies unusual bruising - Neurological Denies headaches, Denies syncope Past Medical History Past Medical History: GERD/Reflux, Hypertension Additional Past Medical History / Comment(s): Gestational hypertension History of Any Multi-Drug Resistant Organisms: None Reported Past Surgical History: Tubal Ligation Additional Past Surgical History / Comment(s): Hiatal hernia surgery, gallbladder removal, tubes placed in ears NORMAL CHILDBIRTH 4 DAYS POST Past Anesthesia/Blood Transfusion Reactions: No Reported Reaction Past Psychological History: No Psychological Hx Reported Additional Psychological History / Comment(s): TAKES NO MEDS Smoking Status: Former smoker Past Alcohol Use History: None Reported Additional Past Alcohol Use History / Comment(s): quit smoking Jul 2017,smoked approx 6 yrs on and off Past Drug Use History: None Reported Additional Drug Use History / Comment(s): uses marijuana socially, instructed to hold 24 hrs prior to procedure - Past Family History Mother Family Medical History: Hypertension Medications and Allergies Home Medications Medication Instructions Recorded Confirmed Type Omeprazole 20 mg PO BID 12/28/20 10/05/21 History Pnv No.154/Iron Fum/Folic Acid 1 tab PO DAILY 09/23/21 10/05/21 History [ Plus Vitamin Tablet] Ibuprofen [Motrin] 600 mg PO Q6HR PRN #30 tab 10/03/21 10/05/21 Rx Allergies Allergy/AdvReac Type Severity Reaction Status Date / Time No Known Allergies Allergy Verified 10/05/21 13:29 Surgical - Exam Vital Signs Temp Pulse Resp BP Pulse Ox 98 F 119 H 18 122/80 99 10/05/21 09:22 10/05/21 09:22 10/05/21 09:22 10/05/21 09:22 10/05/21 09:22 - General no distress, moderate pain - Eyes normal ocular movement, no pale - ENT normal nares, normal mucosa - Respiratory normal expansion, normal respiratory effort - Abdomen Abdomen: soft, non tender - Psychiatric oriented to time, oriented to person, oriented to place Results - Labs 10/07/21 06:11 10/07/21 06:11 Abnormal Lab Results - Last 24 Hours (Table) 10/07/21 10/07/21 Range/Units 06:11 06:11 WBC 15.4 H (3.8-10.6) k/uL RBC 2.82 L (3.80-5.40) m/uL Hgb 7.2 L D (11.4-16.0) gm/dL Hct 23.1 L (34.0-46.0) % RDW 15.8 H (11.5-15.5) % Neutrophils # 12.7 H (1.3-7.7) k/uL Chloride 115 H (98-107) mmol/L Carbon Dioxide 16 L (22-30) mmol/L BUN 22 H (7-17) mg/dL Creatinine 1.27 H (0.52-1.04) mg/dL Calcium 7.7 L (8.4-10.2) mg/dL Total Protein 5.0 L (6.3-8.2) g/dL Albumin 2.2 L (3.5-5.0) g/dL Microbiology - Last 24 Hours (Table) 10/05/21 10:37 Urine Culture - Final Urine,Voided Escherichia coli 10/05/21 19:08 Blood Culture - Preliminary Blood No Growth after 24 hours Diabetes panel 10/07/21 Range/Units 06:11 Sodium 139 (137-145) mmol/L Potassium 3.7 (3.5-5.1) mmol/L Chloride 115 H (98-107) mmol/L Carbon Dioxide 16 L (22-30) mmol/L BUN 22 H (7-17) mg/dL Creatinine 1.27 H (0.52-1.04) mg/dL Glucose 88 (74-99) mg/dL Calcium 7.7 L (8.4-10.2) mg/dL AST 17 (14-36) U/L ALT 11 (4-34) U/L Alkaline Phosphatase 123 (38-126) U/L Total Protein 5.0 L (6.3-8.2) g/dL Albumin 2.2 L (3.5-5.0) g/dL Thyroid panel 10/07/21 Range/Units 06:11 TSH 1.120 (0.465-4.680) mIU/L Calcium panel 10/07/21 Range/Units 06:11 Calcium 7.7 L (8.4-10.2) mg/dL Albumin 2.2 L (3.5-5.0) g/dL Pituitary panel 10/07/21 10/07/21 Range/Units 06:11 06:11 Sodium 139 (137-145) mmol/L Potassium 3.7 (3.5-5.1) mmol/L Chloride 115 H (98-107) mmol/L Carbon Dioxide 16 L (22-30) mmol/L BUN 22 H (7-17) mg/dL Creatinine 1.27 H (0.52-1.04) mg/dL Glucose 88 (74-99) mg/dL Calcium 7.7 L (8.4-10.2) mg/dL TSH 1.120 (0.465-4.680) mIU/L Adrenal panel 10/07/21 Range/Units 06:11 Sodium 139 (137-145) mmol/L Potassium 3.7 (3.5-5.1) mmol/L Chloride 115 H (98-107) mmol/L Carbon Dioxide 16 L (22-30) mmol/L BUN 22 H (7-17) mg/dL Creatinine 1.27 H (0.52-1.04) mg/dL Glucose 88 (74-99) mg/dL Calcium 7.7 L (8.4-10.2) mg/dL Total Bilirubin 0.3 (0.2-1.3) mg/dL AST 17 (14-36) U/L ALT 11 (4-34) U/L Alkaline Phosphatase 123 (38-126) U/L Total Protein 5.0 L (6.3-8.2) g/dL Albumin 2.2 L (3.5-5.0) g/dL Assessment and Plan Assessment: 31-year-old female history of a 5 mm left-sided ureteral stone causing sepsis. Discussed with her given her septic presentation I recommend proceeding stent placement. Discussed the risk and the benefit of procedure. Discussed risk which includes but not limited to bleeding, infection. discussed also with her that the next step would be she would require a left-sided ureteroscopy with holmium laser lithotripsy after her UTI has resolved. -Or for left-sided stent placement
[2021-10-07] MEDS ORDERED: IV FLUID CONTINUATION 150 ML IV ONE (13:42)
[2021-10-07] MEDS ORDERED: ONDANSETRON 4 MG/2 ML VIAL ONE (13:45)
[2021-10-07] MEDS ORDERED: DEXAMETHASONE SOD PHOSPHATE 4 MG/ML 1 ML VIAL IVP ONE (14:00)
[2021-10-07] MEDS ORDERED: ONDANSETRON 4 MG/2 ML VIAL IVP ONE (14:00)
[2021-10-07] MEDS ORDERED: LACTATED RINGERS 1,000 ML IV ONE (14:01)
--- NOTE | 2021-10-07 18:01 | P.OP ---
Date of Procedure: 10/07/21 Preoperative Diagnosis: Left ureteral stone Postoperative Diagnosis: Same Procedure(s) Performed: Cystoscopy and left ureteral stent placement Implants: 6 Fr X 24 cm stent in left ureter Anesthesia: BRIANA Surgeon: Ulises Stanford Estimated Blood Loss (ml): 2 Pathology: other Condition: stable Disposition: PACU Indications for Procedure: 31-year-old female history of a 5 mm left-sided ureteral stone causing sepsis. Discussed with her given her septic presentation I recommend proceeding stent placement. Discussed the risk and the benefit of procedure. Discussed risk which includes but not limited to bleeding, infection. discussed also with her that the next step would be she would require a left-sided ureteroscopy with holmium laser lithotripsy after her UTI has resolved. Description of Procedure: Patient was brought to the operating room, general anesthesia was induced she was prepped and draped in sterile fashion and placed in dorsal lithotimy position, cystoscopy fitted with a 22 Fr sheath was placed per urethra. Cystoscopy was performed which showed no abnormality within the bladder. Attention was then carried to the left ureteral orfice, which was intubated with a sensor wire. Wire was advanced into the renal pelvis under fluoroscopy. next a ureteral stent was passed over the wire. Proximal curl was visualized on fluoroscopy and distal curl was visualized using cystoscope. Cloudy urine was seen draining from the stent, bladder was emptied at the end of the case. Patient tolerated procedure well and was taken to recovery in stable condition.
--- NOTE | 2021-10-07 21:12 | P.PN ---
Subjective Progress Note Date: 10/07/21 Principal diagnosis: Sepsis and left-sided complicated UTI Patient is a 31 year female with recent delivery of a healthy baby presented to hospital with back pain and fever and elevated white count in this patient's CT of abdominal pelvis suggestive of left-sided ureteral stone and hydronephrosis. On today's evaluation that is 10/07/2021, the patient denies having any fever or chills, the patient denies any worsening low back pain denies any chest pain shortness of breath or cough no nausea no vomiting no abdominal pain and no diarrhea Objective - Vital Signs Vital signs: Vital Signs Temp 96.6 F L 10/07/21 09:00 Pulse 102 H 10/07/21 09:00 Resp 16 10/07/21 09:00 BP 124/87 10/07/21 09:00 Pulse Ox 97 10/07/21 09:00 Intake & Output 10/06/21 10/07/21 10/07/21 18:59 06:59 18:59 Intake Total 878.5 34.333 Balance 878.5 34.333 Intake: Intake, IV Titration 638.5 34.333 Amount Diltiazem 125 mg In 138.5 34.333 Sodium Chloride 0.9% 100 ml @ 10 MG/HR 10 mls/hr IV .[id number] [facility] Rx#: [id number] Sodium Chloride 0.9% 1, 500 000 ml @ 130 mls/hr IV . [id number] [facility] Rx#:[id number] Oral 240 Other: Voiding Method Toilet Toilet # Voids 1 2 # Bowel Movements 0 - Exam GENERAL DESCRIPTION: A middle-aged female lying in bed in no distress RESPIRATORY SYSTEM: Unlabored breathing , decreased breath sounds at bases HEART: S1 S2 regular rate and rhythm , ABDOMEN: Soft , no tenderness EXTREMITIES: No edema feet - Labs CBC & Chem 7: 10/07/21 06:11 10/07/21 06:11 Labs: Abnormal Lab Results - Last 24 Hours (Table) 10/07/21 10/07/21 Range/Units 06:11 06:11 WBC 15.4 H (3.8-10.6) k/uL RBC 2.82 L (3.80-5.40) m/uL Hgb 7.2 L D (11.4-16.0) gm/dL Hct 23.1 L (34.0-46.0) % RDW 15.8 H (11.5-15.5) % Neutrophils # 12.7 H (1.3-7.7) k/uL Chloride 115 H (98-107) mmol/L Carbon Dioxide 16 L (22-30) mmol/L BUN 22 H (7-17) mg/dL Creatinine 1.27 H (0.52-1.04) mg/dL Calcium 7.7 L (8.4-10.2) mg/dL Total Protein 5.0 L (6.3-8.2) g/dL Albumin 2.2 L (3.5-5.0) g/dL Microbiology - Last 24 Hours (Table) 10/05/21 10:37 Urine Culture - Final Urine,Voided Escherichia coli 10/05/21 19:08 Blood Culture - Preliminary Blood No Growth after 24 hours Assessment and Plan (1) Sepsis Current Visit: Yes Status: Acute Code(s): A41.9 - SEPSIS, UNSPECIFIED OR GANISM SNOMED Code(s): 30443086 Plan: 1patient presented to hospital with sepsis in this patient did have fever elevated white count tachycardia and this patient has been complaining of lower back pain and recently did have a vaginal delivery patient did have significantly positive UA but no significant symptom with a differential of pyelonephritis versus endometritis and will need to cover for the gram-negative with a likely pathogen. 2patient with a borderline kidney function high risk of nephrotoxicity from gentamicin. 3 CT of abdominal pelvis with oral contrast did shows evidence of left-sided ureteral stone and hydronephrosis for which urology has been consulted 4 patient blood cultures have been negative and urine has been finalized with E. coli which is sensitive pathogen antibiotic will be switched to Rocephin 2 g daily Time with Patient: Less than 30
[2021-10-07 21:13] VITALS: RESP 18
--- NOTE | 2021-10-07 22:40 | FL ---
EXAMINATION TYPE: FL guidance operating room DATE OF EXAM: 10/07/2021 CLINICAL HISTORY: Left-sided kidney stone. TECHNIQUE: Fluoroscopy. COMPARISON: CT abdomen and pelvis one day earlier FINDINGS: Fluoroscopic guidance was provided during left ureter stent insertion procedure performed by Dr. Singh. A total of 3 seconds of fluoroscopic time was utilized during the procedure and 1 spo t intraoperative image is acquired. Single intraoperative image shows proximal two thirds of double-J ureter stent. IMPRESSION: As Above.
[2021-10-08] MEDS: IBUPROFEN 400 MG TAB PO PRN (04:55)
[2021-10-08] MEDS: SODIUM CHLORIDE 0.9% 1,000 ML IV SCH (04:56)
--- NOTE | 2021-10-08 06:12 | P.PN ---
Progress Note - Text Progress Note Date: 10/08/21 Patient is resting without new complaints. She is status post stent placement and states she is feeling actual "relief" and is feeling better. It is evident that her pain was related to kidney stone and hydronephrosis/pyelonephritis. Patient will follow up with me upon discharge for her 6 weeks check.
[2021-10-08 07:56] LABS: Basophils % (A) 0 %; Eosinophils % (A) 0 %; HGB 7.5 gm/dL (11.4-16.0); Hypochromasia Marked; Lymphocytes # (A) 1.7 k/uL (1.0-4.8); Lymphocytes % (A) 11 %; MCH 25.3 pg (25.0-35.0); MCHC 31.1 g/dL (31.0-37.0); MCV 81.2 fL (80.0-100.0); Mean Platelet Volume 7.2; Monocytes # (A) 0.4 k/uL (0-1.0); Monocytes % (A) 2 %; Neutrophils # (A) 12.5 k/uL (1.3-7.7); Neutrophils % (A) 84 %; Platelet Count 310 k/uL (150-450); RBC 2.96 m/uL (3.80-5.40); RDW 15.7 % (11.5-15.5); WBC 14.9 k/uL (3.8-10.6)
[2021-10-08] MEDS: METOPROLOL SUCCINATE (ER) 25 MG TAB.ER.24H PO SCH (08:15)
[2021-10-08] MEDS: PANTOPRAZOLE 40 MG/10 ML VIAL IVP SCH (08:15)
[2021-10-08] MEDS: HEPARIN SODIUM,PORCINE/PF 5,000 UNIT/0.5 ML SYRINGE SQ SCH (08:15)
[2021-10-08 08:19] VITALS: BP 127/84; PULSE 87; TEMP 97.7
[2021-10-08 08:26] LABS: Calcium 7.8 mg/dL (8.4-10.2)
--- NOTE | 2021-10-08 09:01 | CA ---
Transthoracic Echo Report Name: Yisel Leoen Age: 31 Gender: F : 1990 Exam Date: 10/07/2021 11:53 Exam Location: [facility] Ht (in): 63 Wt (lb): 205 Ordering Physician: Papo Paulson Attending/Referring Phys: Bone Puller Kori Dong RDCS Procedure CPT: Indications: Atrial Tachycardia Cardiac Hx: SVT Technical Quality: Good Contrast 1: N/A Total Dose (mL): Contrast 2: Total Dose (mL): MEASUREMENTS (Male / Female) Normal Values 2D ECHO LV Diastolic Diameter PLAX 5.0 cm 4.2 - 5.9 / 3.9 - 5.3 cm LV Systolic Diameter PLAX 4.1 cm IVS Diastolic Thickness 1.0 cm 0.6 - 1.0 / 0.6 - 0.9 cm LVPW Diastolic Thickness 0.9 cm 0.6 - 1.0 / 0.6 - 0.9 cm LV Relative Wall Thickness 0.4 RV Internal Dim ED PLAX 2.9 cm LA Systolic Diameter LX 4.7 cm 3.0 - 4.0 / 2.7 - 3.8 cm LA Volume 93.0 cm 18 - 58 / 22 - 52 cm M-MODE Aortic Root Diameter MM 2.6 cm LA Systolic Diameter MM 4.6 cm LA Ao Ratio MM 1.8 MV E Point Septal Separation 1.1 cm AV Cusp Separation MM 1.9 cm DOPPLER MV Area PHT 6.3 cm Mitral E Point Velocity 87.3 cm/s Mitral A Point Velocity 66.8 cm/s Mitral E to A Ratio 1.3 MV Deceleration Time 120.7 ms MV E' Velocity 5.7 cm/s Mitral E to MV E' Ratio 15.3 TR Peak Velocity 269.9 cm/s TR Peak Gradient 29.1 mmHg Right Ventricular Systolic Press 32.7 mmHg FINDINGS Left Ventricle Mildly increased septal wall thickness. EF 60% Right Ventricle Normal right ventricular size and function. Right Atrium Normal right atrial size. Left Atrium Moderately increased left atrial diameter. Severely increased left atrial volume. Mildly increased left atrial area. Mitral Valve Mild mitral regurgitation. Aortic Valve Trileaflet aortic valve. No aortic regurgitation. Tricuspid Valve Mild tricuspid regurgitation. Pulmonic Valve Structurally normal pulmonic valve. Pericardium Normal pericardium. Aorta Normal size aortic root and proximal ascending aorta. CONCLUSIONS Normal LV size and systolic Fx. No significant abn on doppler. Previewed by: Dr. Hermelindo Mendez MD (Electronically Signed) Final Date: 08 October 2021 09:00
--- NOTE | 2021-10-08 09:16 | P.PN ---
Subjective Progress Note Date: 10/08/21 S/P left ureteral stent yesterday. No acute overnight event. Urine culture showing E.Coli Objective - Vital Signs Vital signs: Vital Signs Temp 97.4 F L 10/08/21 04:00 Pulse 83 10/08/21 04:00 Resp 18 10/08/21 04:00 BP 122/85 10/08/21 04:00 Pulse Ox 95 10/08/21 04:00 Intake & Output 10/07/21 10/07/21 10/08/21 06:59 18:59 06:59 Intake Total 34.333 1045 Output Total 202 Balance 34.333 843 Intake: IV 925 Intake, IV Titration 34.333 Amount Diltiazem 125 mg In 34.333 Sodium Chloride 0.9% 100 ml @ 10 MG/HR 10 mls/hr IV .[id number] [facility] Rx#: [id number] Oral 120 Output: Urine 200 Estimated Blood Loss 2 Other: Voiding Method Toilet Toilet Toilet # Voids 2 2 - Constitutional General appearance: Present: no acute distress - Gastrointestinal General gastrointestinal: Present: soft. Absent: distended, tenderness - Psychiatric Psychiatric: Present: A&O x's 3 - Labs CBC & Chem 7: 10/08/21 06:33 10/08/21 06:33 Labs: Abnormal Lab Results - Last 24 Hours (Table) 10/07/21 10/07/21 Range/Units 06:11 06:11 WBC 15.4 H (3.8-10.6) k/uL RBC 2.82 L (3.80-5.40) m/uL Hgb 7.2 L D (11.4-16.0) gm/dL Hct 23.1 L (34.0-46.0) % RDW 15.8 H (11.5-15.5) % Neutrophils # 12.7 H (1.3-7.7) k/uL Chloride 115 H (98-107) mmol/L Carbon Dioxide 16 L (22-30) mmol/L BUN 22 H (7-17) mg/dL Creatinine 1.27 H (0.52-1.04) mg/dL Calcium 7.7 L (8.4-10.2) mg/dL Total Protein 5.0 L (6.3-8.2) g/dL Albumin 2.2 L (3.5-5.0) g/dL Microbiology - Last 24 Hours (Table) 10/05/21 19:08 Blood Culture - Preliminary Blood No Growth after 48 hours 10/05/21 10:37 Urine Culture - Final Urine,Voided Escherichia coli Assessment and Plan Assessment: 31-year-old female history of a 5 mm left-sided ureteral stone causing sepsis. S/P left ureteral stent placement on 10/07/21 doing well. Urine culture growing E coli -Ok for discharge from urology standpoint recommend 14 days of antibiotics based on her urine culture susceptibility -Well setup for left sided ureteroscopy with holmium laser and stent removal
--- NOTE | 2021-10-08 11:37 | P.PN ---
Subjective Progress Note Date: 10/08/21 HISTORY OF PRESENT ILLNESS: Patient examined this morning at the bedside. Patient denies chest pain or pressure. She denies shortness of breath. Telemetry reveals sinus mechanism. She is status post cystoscopy and left ureteral stent placement. Echocardiogram completed revealing ejection fraction 60%. PHYSICAL EXAM: VITAL SIGNS: Reviewed. GENERAL: Well-developed in no acute distress. NECK: Supple. No JVD or thyromegaly LUNGS: Respirations even and unlabored. Lungs essentially clear to auscultation bilaterally. HEART: Regular rate and rhythm. S1 and S2 heard. EXTREMITIES: Normal range of motion. No clubbing or cyanosis. Peripheral pulses intact. No lower extremity edema ASSESSMENT: Paroxysmal SVT Left sided ureteral stone causing sepsis PLAN: Continue current dose of metoprolol Patient is stable for discharge home today from a cardiac standpoint We will sign off. Please reconsult if needed. Nurse practitioner note has been reviewed by physician. Signing provider agrees with the documented findings, assessment, and plan of care. Objective - Vital Signs Vital signs: Vital Signs Temp 97.7 F 10/08/21 08:00 Pulse 87 10/08/21 08:00 Resp 18 10/08/21 08:00 BP 127/84 10/08/21 08:00 Pulse Ox 94 L 10/08/21 08:00 Intake & Output 10/07/21 10/08/21 10/08/21 18:59 06:59 18:59 Intake Total 1045 320 Output Total 202 Balance 843 320 Intake: IV 925 200 Cefepime 2 gm In Sodium 100 Chloride 0.9% 100 ml @ 25 mls/hr IVPB Q8HR [facility] Rx# :[id number] Invasive Line 1 10 Invasive Line 2 10 Sodium Chloride 0.9% 1, 80 000 ml @ 80 mls/hr IV . [id number] [facility] Rx#:[id number] Oral 120 120 Output: Urine 200 Estimated Blood Loss 2 Other: Voiding Method Toilet Toilet # Voids 2 - Labs CBC & Chem 7: 10/08/21 06:33 10/08/21 06:33 Labs: Abnormal Lab Results - Last 24 Hours (Table) 10/08/21 10/08/21 Range/Units 06:33 06:33 WBC 14.9 H (3.8-10.6) k/uL RBC 2.96 L (3.80-5.40) m/uL Hgb 7.5 L (11.4-16.0) gm/dL Hct 24.0 L (34.0-46.0) % RDW 15.7 H (11.5-15.5) % Neutrophils # 12.5 H (1.3-7.7) k/uL Chloride 115 H (98-107) mmol/L Carbon Dioxide 14 L (22-30) mmol/L BUN 25 H (7-17) mg/dL Creatinine 1.06 H (0.52-1.04) mg/dL Calcium 7.8 L (8.4-10.2) mg/dL Microbiology - Last 24 Hours (Table) 10/05/21 19:08 Blood Culture - Preliminary Blood No Growth after 48 hours 10/05/21 10:37 Urine Culture - Final Urine,Voided Escherichia coli
--- NOTE | 2021-10-10 14:09 | P.DS ---
Providers Date of admission: 10/05/21 17:07 Expected date of discharge: 10/08/21 Attending physician: Don Robles Consults: 10/05/21 16:27 Consult Physician Urgent Consulting Provider: Daniel Mdcermott Consult Reason/Comments: Supraventricular tachycardia Do you want consulting provider notified?: Yes 10/05/21 17:44 Consult Physician Routine Consulting Provider: Tucker Power Consult Reason/Comments: recent delivery, fever Do you want consulting provider notified?: Yes 10/05/21 17:45 Consult Physician Routine Consulting Provider: Rowena Marinelli Consult Reason/Comments: sepsis Do you want consulting provider notified?: Yes 10/06/21 22:07 Consult Physician Stat Consulting Provider: Brett Fountain Consult Reason/Comments: Left side hydronephrosis and hydroureter with obstructing calculus Do you want consulting provider notified?: Already Contacted Primary care physician: Don Robles Hospital Course: Final Diagnoses: Sepsis secondary to pyelonephritis, acute complicated UTI with E. coli secondary to hydronephrosis and obstructing renal calculus, ,status post cystoscopy with left ureteral stent placement. Acute renal failure secondary to the above Paroximal SVT Hospital course:This is a 31-year-old female, recent vaginal delivery on October 01 admitted with acute UTI with sepsis, SVT, acute renal failure and multiple other medical issues. CT of abdomen and pelvis reported left-sided hydronephrosis and hydroureter with obstructing calculus at the left ureterovesical junction. Evaluated by urology and patient is scheduled for cystoscopy today. Continues on antibiotics of Rocephin as per infectious disease. Urine culture reporting E. coli, preliminary blood cultures reporting no growth after 24 hours. Afebrile, T-max 101.1. SVT resolved, Cardizem drip discontinued. Maintained on gentle IV fluid hydration. Labs pending. Denies chest pain, palpitations or shortness of breath. Afebrile, Blood cultures negative and urine culture reporting E. coli.Maintained on IV antibiotics as per ID with Ceftin recommended at discharge. Evaluated by urology, underwent cystoscopy with left ureteral stent placement. Tolerated procedure well. Cardizem drip weaned off, cardiology recommended patient be continued on metoprolol at NM. Significant clinical improvement. Patient has been cleared by all consults for discharged and will be discharged home today in a stable condition with guarded prognosis. The impression and plan of care has been dictated as directed. : I performed a history and examination of this patient, discussed the same with the dictator. I agree with the dictator's note ,documented as a scribe. Any additional findings or plans will be noted. Patient Condition at Discharge: Stable Plan - Discharge Summary Discharge Rx Participant: No New Discharge Prescriptions: New Cefuroxime Axetil [Ceftin] 500 mg PO BID 12 Days #24 tab Acetaminophen [Tylenol] 500 mg PO Q4-6H PRN #1 tab PRN Reason: Pain Metoprolol Succinate (ER) [Toprol XL] 25 mg PO DAILY #30 tab Continue Pnv No.154/Iron Fum/Folic Acid [ Plus Vitamin Tablet] 1 tab PO DAILY Omeprazole 20 mg PO BID Discontinued Ibuprofen [Motrin] 600 mg PO Q6HR PRN #30 tab PRN Reason: Mild Pain (Scale 1 To 3) Discharge Medication List Omeprazole 20 mg PO BID 12/28/20 [History] Pnv No.154/Iron Fum/Folic Acid [ Plus Vitamin Tablet] 1 tab PO DAILY 09/23/21 [History] Acetaminophen [Tylenol] 500 mg PO Q4-6H PRN #1 tab 10/08/21 [Rx] Cefuroxime Axetil [Ceftin] 500 mg PO BID 12 Days #24 tab 10/08/21 [Rx] Metoprolol Succinate (ER) [Toprol XL] 25 mg PO DAILY #30 tab 10/08/21 [Rx] Follow up Appointment(s)/Referral(s): Mohinder Huang MD [STAFF PHYSICIAN] - 1 Week Tucker Power MD [STAFF PHYSICIAN] - 6 Weeks Don Robles DO [Primary Care Provider] - 3 Days Ulises Stanford MD [STAFF PHYSICIAN] - 1 Week (-Left sided ureteral stent for ureteral stone. -Left sided ureteroscopy with holmium laser and stent removal during follow up. ) Rowena Marinelli MD [STAFF PHYSICIAN] - 1 Week Patient Instructions/Handouts: Supraventricular Tachycardia (ED), Kidney Stones (ED), Urinary Tract Infection in Women (DC), Sepsis (DC), Urethral Stent Placement (DC), Ureteroscopy (DC) Discharge Disposition: HOME SELF-CARE
== END 2021-10-08 17:09 | disposition home or self-care (01) | DRG 769 ==
LOC: EC 09:11 → 3SCARD 17:07
PROVIDERS: ADMIT Family Medicine; ATTEND Family Medicine
PROC: 0T778DZ Dilation of Left Ureter with Intraluminal Device, Via Natural or Artificial Opening Endoscopic (ICD-10-PCS; principal; 2021-10-07 08:30)
DX: O86.21 Infection of kidney following delivery (principal); O99.42 Diseases of the circulatory system complicating childbirth; O90.4 Postpartum acute kidney failure; N13.6 Pyonephrosis; E87.1 Hypo-osmolality and hyponatremia; N17.9 Acute kidney failure, unspecified; O99.43 Diseases of the circulatory system complicating the puerperium; I47.1 Supraventricular tachycardia; N20.0 Calculus of kidney; Z28.310 Unvaccinated for COVID-19; O16.5 Unspecified maternal hypertension, complicating the puerperium; Z90.49 Acquired absence of other specified parts of digestive tract; Z98.890 Other specified postprocedural states; Z82.49 Family history of ischemic heart disease and other diseases of the circulatory system; Z87.891 Personal history of nicotine dependence
CPT/HCPCS: 36415; 71045; 71046; 71275; 74018; 74176; 80048; 80053; 80170; 81001; 82150; 83605; 83690; 84443; 84484; 85025; 85379; 87040; 87077; 87086; 87186; 93005; 93306; 96361; 96365; 96366; 96375; 99285

== ENCOUNTER → 2021-10-21 | Outpatient (CLI) | payer BC ==
[2021-10-21 22:35] LABS: Basophils # (A) 0.06 X 10*3/uL (0.00-0.10); Basophils % (A) 0.6 %; Eosinophils # (A) 0.24 X 10*3/uL (0.04-0.35); Eosinophils % (A) 2.3 %; HCT 35.8 % (37.2-46.3); HGB 10.6 g/dL (12.0-15.0); Immature Grans, Automated 0.4 %; Lymphocytes # (A) 3.21 X 10*3/uL (0.90-5.00); Lymphocytes % (A) 30.4 %; MCH 24.7 pg (27.0-32.0); MCHC 29.6 g/dL (32.0-37.0); MCV 83.4 fL (80.0-97.0); Mean Platelet Volume 9.9 fL (9.5-12.2); Monocytes # (A) 0.63 X 10*3/uL (0.20-1.00); NRBC Per 100 WBC 0 /100 WBCS (0.0-0.0); Neutrophils # (A) 6.37 X 10*3/uL (1.80-7.70); Neutrophils % (A) 60.3 %; Platelet Count 725 X 10*3/uL (140-440); RBC 4.29 X 10*6/uL (4.10-5.20); RDW 17.4 % (11.5-14.5); WBC 10.55 X 10*3/uL (4.50-10.00)
[2021-10-21 22:52] LABS: Appearance,Urine Turbid (Clear); Bacteria,Urine None Seen /HPF (None Seen); Bilirubin,Urine Negative (Negative); Blood,Urine Large (Negative); Color,Urine Yellow (Yellow); Ketones,Urine Trace mg/dL (Negative); Nitrite,Urine Negative (Negative); PH, Urine 5.5 (5.0-8.0); Specific Gravity,Urine 1.017 (1.001-1.030); Urobilinogen,Urine 0.2 (0.2,1.0)
[2021-10-21 23:24] LABS: African American GFR (CKD) 99.4 (60.0-200.0); Anion Gap 13.1 mmol/L (10.00-18.00); BUN/Creat Ratio 12.02 Ratio (12.00-20.00); Blood Urea Nitrogen 10.7 mg/dL (9.0-27.0); Calcium 9.5 mg/dL (8.7-10.3); Carbon Dioxide 25.2 mmol/L (20.0-27.5); Non-African American GFR(CKD) 85.8 (60.0-200.0); Potassium 3.9 mmol/L (3.5-5.5)
== END | disposition home or self-care (01) ==
LOC: LABPAT 12:19
PROVIDERS: ATTEND Urology
DX: Z01.812 Encounter for preprocedural laboratory examination (principal); N20.1 Calculus of ureter
CPT/HCPCS: 36415; 80048; 81001; 85025; 87086

== ENCOUNTER → 2021-11-21 | Outpatient (CLI) | payer BC ==
--- NOTE | 2021-11-21 16:08 | XR ---
EXAMINATION TYPE: XR KUB DATE OF EXAM: 11/21/2021 COMPARISON: X-ray dated 10/28/2021 INDICATION: Left-sided stone. TECHNIQUE: Single AP view of the abdomen and pelvis FINDINGS: Interval removal of the left double-J ureteric stent. Suspected 3 mm left lower pole nonobstructing r enal calculus. No other definite radiodense urinary calculi identified. The kidneys are partially obscured by the ov erlying bowel gas and fecal material. Unchanged visualized bones. IMPRESSION: Interval changes as described above.
== END | disposition home or self-care (01) ==
LOC: RADXRMAIN 10:16
PROVIDERS: ATTEND Urology
DX: N20.0 Calculus of kidney (principal)
CPT/HCPCS: 74018

== ENCOUNTER 2022-11-02 13:54 | Emergency (ER) | payer BC ==
[2022-11-02 14:03] VITALS: RESP 20
[2022-11-02] MEDS ORDERED: KETOROLAC 15 MG/ML 1 ML VIAL IVP STA (14:54)
[2022-11-02] MEDS ORDERED: ONDANSETRON 4 MG/2 ML VIAL IVP STA (14:55)
[2022-11-02 15:35] LABS: Basophils % (A) 0 %; Eosinophils # (A) 0.1 k/uL (0-0.7); Eosinophils % (A) 1 %; HCT 40.8 % (34.0-46.0); HGB 13.3 gm/dL (11.4-16.0); Lymphocytes # (A) 1.5 k/uL (1.0-4.8); Lymphocytes % (A) 11 %; MCHC 32.6 g/dL (31.0-37.0); Mean Platelet Volume 7.6; Monocytes # (A) 0.5 k/uL (0-1.0); Monocytes % (A) 4 %; Neutrophils # (A) 11.5 k/uL (1.3-7.7); Neutrophils % (A) 84 %; Platelet Count 380 k/uL (150-450); RDW 15.6 % (11.5-15.5); WBC 13.8 k/uL (3.8-10.6)
[2022-11-02 15:39] LABS: Appearance,Urine Cloudy (Clear); Bacteria,Urine Occasional /hpf; Bilirubin,Urine Negative (Negative); Blood,Urine Small (Negative); Color,Urine Yellow; Glucose,Urine (UA) Negative (Negative); Hyaline Casts,Urine 1 /lpf (0-2); Ketones,Urine Negative (Negative); Leukocyte Esterase,Urine Small (Negative); Mucus,Urine Moderate /hpf; Nitrite,Urine Negative (Negative); PH, Urine 5.5 (5.0-8.0); Protein,Urine 1+ (Negative); RBC,Urine 24 /hpf (0-5); Specific Gravity,Urine 1.036 (1.001-1.035); Squamous Epithelial Cell,Urine 5 /hpf (0-4); Uric Acid Crystals,Urine Moderate /hpf; Urobilinogen,Urine <2.0 mg/dL (<2.0); WBC,Urine 5 /hpf (0-5)
[2022-11-02 15:49] LABS: ALT 23 U/L (4-34); AST 30 U/L (14-36); African American GFR (CKD) >90 (>60 ml/min/1.73 sqM); Albumin 5.1 g/dL (3.5-5.0); Alkaline Phosphatase 167 U/L (38-126); Anion Gap 14 mmol/L; Blood Urea Nitrogen 15 mg/dL (7-17); Carbon Dioxide 25 mmol/L (22-30); Chloride 103 mmol/L (98-107); Glucose 100 mg/dL (74-99); Lipase 95 U/L (23-300); Non-African American GFR(CKD) 83 (>60 ml/min/1.73 sqM); Potassium 3.7 mmol/L (3.5-5.1); Sodium 142 mmol/L (137-145); Total Bilirubin 0.4 mg/dL (0.2-1.3); Total Protein 9.1 g/dL (6.3-8.2)
[2022-11-02] MEDS ORDERED: SODIUM CHLORIDE 0.9% 1,000 ML IV STA (16:07)
--- NOTE | 2022-11-02 16:23 | CT ---
EXAMINATION TYPE: CT abdomen pelvis wo con DATE OF EXAM: 11/02/2022 HISTORY: left flank pain CT DLP: 691.6 mGycm. Automated Exposure Control for Dose Reduction was Utilized. TECHNIQUE: CT scan of the abdomen and pelvis is performed without oral or IV contrast. COMPARISON: CT October 06, 2021 FINDINGS: Within the limitations of a non-contrast study, the following observations are made. LUNG BASES: Cholecystectomy clip is redemonstrated. LIVER/GB: No significant abnormality is appreciated. PANCREAS: No significant abnormality is seen. SPLEEN: No significant abnormality is seen. ADRENALS: No significant abnormality is seen. KIDNEYS: No right renal stone or hydronephrosis is seen. There is 6 mm calculus in distal left ureter at UVJ axial image 132 causing [id number] left-sided hydronephrosis. No additional intralumin al calculi in the poorly distended bladder. BOWEL: Surgical change at the level of gastroesophageal junction just below the diaphragm is redemons trated. Persistent focal dilatation and moderate concentric wall thickening of the distal esophagus. No suspicious small or large bowel dilatation. GENITAL ORGANS: Anteverted uterus. LYMPH NODES: No greater than 1cm abdominal or pelvic lymph nodes are appreciated. OSSEOUS STRUCTURES: No significant abnormality is seen. OTHER: No significant additional abnormality is seen. IMPRESSION: There is 6 mm calculus at left UVJ causing [id number] left-sided hydronephrosis.
[2022-11-02] MEDS ORDERED: AMOXIC-POT CLAV 875-125MG 1 EACH TAB PO STA (16:46)
[2022-11-02] MEDS ORDERED: TAMSULOSIN 0.4 MG CAP.ER.24H PO STA (16:46)
--- NOTE | 2022-11-02 17:20 | ED ---
Abdominal Pain HPI - General Chief Complaint: Abdominal Pain Stated Complaint: L pelvic/lower back pain Time Seen by Provider: 11/02/22 14:39 Source: patient Mode of arrival: ambulatory Limitations: no limitations - History of Present Illness Initial Comments: Patient is a 32-year-old female who presents to the emergency department for left back pain. Pain started today along with urinary frequency/urgency, burning with urination. Patient has history of kidney stones states this feels similar. No blood in the urine. She has had nausea with multiple episodes of vomiting. She denies fever, chills. - Related Data Home Medications Medication Instructions Recorded Confirmed Metoprolol Succinate (ER) [Toprol 25 mg PO QAM 10/24/21 XL] Previous Rx's Medication Instructions Recorded Cephalexin [Keflex] 500 mg PO Q8HR #15 cap 10/28/21 Ketorolac [Toradol] 10 mg PO Q6HR #8 tab 10/28/21 Amoxic-Pot Clav 875-125Mg 1 tab PO BID #10 tab 11/02/22 [Augmentin 875-125] Ibuprofen [Motrin] 800 mg PO Q8HR PRN #30 tab 11/02/22 Ondansetron Odt [Zofran Odt] 4 mg PO Q8HR PRN #10 tab 11/02/22 Tamsulosin [Flomax] 0.4 mg PO DAILY #7 cap 11/02/22 Allergies Allergy/AdvReac Type Severity Reaction Status Date / Time No Known Allergies Allergy Verified 11/02/22 14:03 Review of Systems ROS Statement: Those systems with pertinent positive or pertinent negative responses have been documented in the HPI. ROS Other: All systems not noted in ROS Statement are negative. Past Medical History Past Medical History: GERD/Reflux, Hypertension Additional Past Medical History / Comment(s): Gestational hypertension, kidney stones History of Any Multi-Drug Resistant Organisms: None Reported Past Surgical History: Tubal Ligation Additional Past Surgical History / Comment(s): Hiatal hernia surgery, gallbladder removal, tubes placed in ears NORMAL CHILDBIRTH 4 DAYS POST Past Anesthesia/Blood Transfusion Reactions: No Reported Reaction Past Psychological History: No Psychological Hx Reported Smoking Status: Never smoker Past Alcohol Use History: None Reported Past Drug Use History: None Reported - Past Family History Mother Family Medical History: Hypertension General Exam Limitations: no limitations General appearance: alert, in no apparent distress Head exam: Present: atraumatic, normocephalic, normal inspection Eye exam: Present: normal appearance, PERRL, EOMI. Absent: scleral icterus, conjunctival injection, periorbital swelling Respiratory exam: Present: normal lung sounds bilaterally. Absent: respiratory distress, wheezes, rales, rhonchi, stridor Cardiovascular Exam: Present: regular rate, normal rhythm, normal heart sounds. Absent: systolic murmur, diastolic murmur, rubs, gallop, clicks GI/Abdominal exam: Present: soft, normal bowel sounds. Absent: distended, tenderness, guarding, rebound, rigid Back exam: Present: normal inspection, full ROM, CVA tenderness (L). Absent: paraspinal tenderness, vertebral tenderness Neurological exam: Present: alert, oriented X3, CN II-XII intact Psychiatric exam: Present: normal affect, normal mood Skin exam: Present: warm, dry, intact, normal color. Absent: rash Course Vital Signs 11/02/22 11/02/22 11/02/22 13:59 16:08 17:00 Temperature 97.9 F Pulse Rate 75 68 77 Respiratory 20 Rate Blood Pressure 168/86 122/79 112/75 O2 Sat by Pulse 100 98 100 Oximetry 11/02/22 18:00 Temperature 98.6 F Pulse Rate 69 Respiratory Rate Blood Pressure 125/81 O2 Sat by Pulse 99 Oximetry Medical Decision Making - Medical Decision Making Was pt. sent in by a medical professional or institution (NOHEMY Almonte, ACCOUNTING ADMINISTRATOR, urgent care, hospital, or alf...) When possible be specific @ -No Did you speak to anyone other than the patient for history (EMS, parent, family, police, friend...)? What history was obtained from this source @ -No Did you review nursing and triage notes (agree or disagree)? Why? @ -I reviewed and agree with nursing and triage notes Were old charts reviewed (outside hosp., previous admission, EMS record, old EKG, old radiological studies, urgent care reports/EKG's, alf records)? Report findings @ -No old charts were reviewed Differential Diagnosis (chest pain, altered mental status, abdominal pain women, abdominal pain men, vaginal bleeding, weakness, fever, dyspnea, syncope, headache, dizziness, GI bleed, back pain, seizure, CVA, palpatations, mental health)? @ -Differential Abdominal Pain Women: Appendicitis, Cholecystitis, diverticulosis, ischemic bowel, pancreatitis, hepatitis, UTI, gastroenteritis, AAA, incarcerated hernia, bowel obstruction, constipation, inflammatory bowel, hepatitis, peptic ulcer disease, splenic infarction, perforated viscus, vulvitis, ovarian torsion, PID, kidney stone, placenta abruption, this is not meant to be an all-inclusive list EKG interpreted by me (3pts min.). @ -As above X-rays interpreted by me (1pt min.). @ -None done CT interpreted by me (1pt min.). @ -CT of the abdomen and pelvis without contrast shows 6 mm calculus the left ureterovesical junction causing mild to moderate left-sided hydronephrosis U/S interpreted by me (1pt. min.). @ -None done What testing was considered but not performed or refused? (CT, X-rays, U/S, labs)? Why? @ -None What meds were considered but not given or refused? Why? @ -None Did you discuss the management of the patient with other professionals (professionals i.e. , PA, ACCOUNTING ADMINISTRATOR, lab, RT, psych nurse, social psychologist, master at arms, teacher, philanthropy officer, casework specialist)? Give summary @ -No Was smoking cessation discussed for >3mins.? @ -No Was critical care preformed (if so, how long)? @ -No Were there social determinants of health that impacted care today? How? (Homelessness, low income, unemployed, alcoholism, drug addiction, transportation, low edu. Level, literacy, decrease access to med. care, [facility], rehab)? @ -No Was there de-escalation of care discussed even if they declined (Discuss DNR or withdrawal of care, Hospice)? DNR status @ -No What co-morbidities impacted this encounter? (DM, HTN, Smoking, COPD, CAD, Cancer, CVA, ARF, Chemo, Hep., AIDS, mental health diagnosis, sleep apnea, morbid obesity)? @ -None Was patient admitted / discharged? Hospital course, mention meds given and route, prescriptions, significant lab abnormalities, going to OR and other pertinent info. @ -Patient presented with left flank pain and UTI symptoms. She is afebrile. There is left CVA tenderness. There is mild cytosis of 13.8. Lactic is elevated at 2.5, likely related to vomiting. Urinalysis shows questionable infection. CT of the abdomen and pelvis without contrast was obtained and interpreted by myself/radiologist showing 6 mm calculus at the left ear to vascular junction causing mild to moderate left-sided hydronephrosis. Pain was controlled well with Toradol. Patient given Zofran with no further episodes of vomiting. We discussed disposition options patient would like to go home as she is feeling better. She will follow-up with Dr. Stanford her urologist. She is discharged with Motrin and Zofran, as well as Augmentin for possible UTI. We discussed return parameters Undiagnosed new problem with uncertain prognosis? @ -No Drug Therapy requiring intensive monitoring for toxicity (Heparin, Nitro, Insulin, Cardizem)? @ -No Were any procedures done? @ -No Diagnosis/symptom? @ Left kidney stone Acute, or Chronic, or Acute on Chronic? @ -Acute Uncomplicated (without systemic symptoms) or Complicated (systemic symptoms)? @ -Uncomplicated Side effects of treatment? @ -No Exacerbation, Progression, or Severe Exacerbation? @ -No Poses a threat to life or bodily function? How? (Chest pain, [place], [place], pneumonia, PE, COPD, DKA, ARF, appy, cholecystitis, CVA, Diverticulitis, Homicidal, Suicidal, threat to staff... and all critical care pts) @ -No Dr. Garcia is my attending - Lab Data Result diagrams: 11/02/22 15:22 11/02/22 15:22 Lab Results 11/02/22 11/02/22 11/02/22 Range/Units 15:22 15:22 15:22 WBC 13.8 H (3.8-10.6) k/uL RBC 5.10 (3.80-5.40) m/uL Hgb 13.3 (11.4-16.0) gm/dL Hct 40.8 (34.0-46.0) % MCV 80.0 (80.0-100.0) fL MCH 26.0 (25.0-35.0) pg MCHC 32.6 (31.0-37.0) g/dL RDW 15.6 H (11.5-15.5) % Plt Count 380 (150-450) k/uL MPV 7.6 Neutrophils % 84 % Lymphocytes % 11 % Monocytes % 4 % Eosinophils % 1 % Basophils % 0 % Neutrophils # 11.5 H (1.3-7.7) k/uL Lymphocytes # 1.5 (1.0-4.8) k/uL Monocytes # 0.5 (0-1.0) k/uL Eosinophils # 0.1 (0-0.7) k/uL Basophils # 0.0 (0-0.2) k/uL Sodium 142 (137-145) mmol/L Potassium 3.7 (3.5-5.1) mmol/L Chloride 103 (98-107) mmol/L Carbon Dioxide 25 (22-30) mmol/L Anion Gap 14 mmol/L BUN 15 (7-17) mg/dL Creatinine 0.91 (0.52-1.04) mg/dL Est GFR (CKD-EPI)AfAm >90 (>60 ml/min/1.73 sqM) Est GFR (CKD-EPI)NonAf 83 (>60 ml/min/1.73 sqM) Glucose 100 H (74-99) mg/dL Lactic Ac Sepsis Rflx Plasma Lactic Acid Hu (0.7-2.0) mmol/L Calcium 10.0 (8.4-10.2) mg/dL Total Bilirubin 0.4 (0.2-1.3) mg/dL AST 30 (14-36) U/L ALT 23 (4-34) U/L Alkaline Phosphatase 167 H (38-126) U/L Total Protein 9.1 H (6.3-8.2) g/dL Albumin 5.1 H (3.5-5.0) g/dL Lipase 95 (23-300) U/L Urine Color Yellow Urine Appearance Cloudy H (Clear) Urine pH 5.5 (5.0-8.0) Ur Specific Brooks 1.036 H (1.001-1.035) Urine Protein 1+ H (Negative) Urine Glucose (UA) Negative (Negative) Urine Ketones Negative (Negative) Urine Blood Small H (Negative) Urine Nitrite Negative (Negative) Urine Bilirubin Negative (Negative) Urine Urobilinogen <2.0 (<2.0) mg/dL Ur Leukocyte Esterase Small H (Negative) Urine RBC 24 H (0-5) /hpf Urine WBC 5 (0-5) /hpf Ur Squamous Epith Cells 5 H (0-4) /hpf Uric Acid Crystals Moderate H (None) /hpf Urine Bacteria Occasional H (None) /hpf Hyaline Casts 1 (0-2) /lpf Urine Mucus Moderate H (None) /hpf Urine HCG, Qual (Not Detectd) 11/02/22 11/02/22 11/02/22 Range/Units 15:22 15:22 15:54 WBC (3.8-10.6) k/uL RBC (3.80-5.40) m/uL Hgb (11.4-16.0) gm/dL Hct (34.0-46.0) % MCV (80.0-100.0) fL MCH (25.0-35.0) pg MCHC (31.0-37.0) g/dL RDW (11.5-15.5) % Plt Count (150-450) k/uL MPV Neutrophils % % Lymphocytes % % Monocytes % % Eosinophils % % Basophils % % Neutrophils # (1.3-7.7) k/uL Lymphocytes # (1.0-4.8) k/uL Monocytes # (0-1.0) k/uL Eosinophils # (0-0.7) k/uL Basophils # (0-0.2) k/uL Sodium (137-145) mmol/L Potassium (3.5-5.1) mmol/L Chloride (98-107) mmol/L Carbon Dioxide (22-30) mmol/L Anion Gap mmol/L BUN (7-17) mg/dL Creatinine (0.52-1.04) mg/dL Est GFR (CKD-EPI)AfAm (>60 ml/min/1.73 sqM) Est GFR (CKD-EPI)NonAf (>60 ml/min/1.73 sqM) Glucose (74-99) mg/dL Lactic Ac Sepsis Rflx Y Plasma Lactic Acid Hu 2.5 H* (0.7-2.0) mmol/L Calcium (8.4-10.2) mg/dL Total Bilirubin (0.2-1.3) mg/dL AST (14-36) U/L ALT (4-34) U/L Alkaline Phosphatase (38-126) U/L Total Protein (6.3-8.2) g/dL Albumin (3.5-5.0) g/dL Lipase (23-300) U/L Urine Color Urine Appearance (Clear) Urine pH (5.0-8.0) Ur Specific Brooks (1.001-1.035) Urine Protein (Negative) Urine Glucose (UA) (Negative) Urine Ketones (Negative) Urine Blood (Negative) Urine Nitrite (Negative) Urine Bilirubin (Negative) Urine Urobilinogen (<2.0) mg/dL Ur Leukocyte Esterase (Negative) Urine RBC (0-5) /hpf Urine WBC (0-5) /hpf Ur Squamous Epith Cells (0-4) /hpf Uric Acid Crystals (None) /hpf Urine Bacteria (None) /hpf Hyaline Casts (0-2) /lpf Urine Mucus (None) /hpf Urine HCG, Qual Not Detected (Not Detectd) Disposition Clinical Impression: Kidney stone Disposition: HOME SELF-CARE Condition: Good Instructions (If sedation given, give patient instructions): Kidney Stones (ED) Additional Instructions: Take medication as directed. Please follow-up with urology in 1-2 days. Return to the emergency department if you experience new, concerning, or worsening symptoms. Prescriptions: Amoxic-Pot Clav 875-125Mg [Augmentin 875-125] 1 tab PO BID #10 tab Tamsulosin [Flomax] 0.4 mg PO DAILY #7 cap Ibuprofen [Motrin] 800 mg PO Q8HR PRN #30 tab PRN Reason: Pain Ondansetron Odt [Zofran Odt] 4 mg PO Q8HR PRN #10 tab PRN Reason: Nausea Is patient prescribed a controlled substance at d/c from ED?: No Referrals: Don Robles DO [Primary Care Provider] - 1-2 days
[2022-11-02 18:04] VITALS: BP 125/81; PULSE 69; TEMP 98.6
== END 2022-11-02 19:31 | disposition home or self-care (01) ==
LOC: EC 13:54
DX: N13.2 Hydronephrosis with renal and ureteral calculous obstruction (principal); I10 Essential (primary) hypertension; Z79.899 Other long term (current) drug therapy
CPT/HCPCS: 36415; 80053; 83605; 83690; 85025; 81001; 81025; 74176; 99284; 96374; 96375; 96361; J2405; J1885

== ENCOUNTER → 2023-01-12 | Outpatient (CLI) | payer BC ==
--- NOTE | 2023-01-12 11:27 | XR ---
EXAMINATION TYPE: XR KUB DATE OF EXAM: 01/12/2023 COMPARISON: 11/21/2021 HISTORY: Renal calculus TECHNIQUE: Abdomen is examined in the supine view FINDINGS: No suspicious renal stones are identified. Previous inferior pole left renal stone is not i dentified. A 0.9 cm rounded density overlying the left L3 transverse process may be present. A proximal ureteral stone may be present. This could be artifactual. Consider CT or ultrasound for additional evaluation . Bowel gas pattern appears normal. Psoas margins are normal. No mass effect is evident. Osseous struct ures appear intact. IMPRESSION: 1. Partially obscured rounded density may overlie the left L3 transverse process. Proximal ureteral stone is not excluded. 2. No additional areas suspicious for renal or ureteral stones identified. Previous left renal stone is not visualized on the current exam.
== END | disposition home or self-care (01) ==
LOC: RADXRMAIN 09:11
PROVIDERS: ATTEND Urology
DX: N20.0 Calculus of kidney (principal)
CPT/HCPCS: 74018